=== PATIENT | female | born 1940 | race Caucasian/White ===

== ENCOUNTER 2020-01-05 11:10 | Outpatient (CLI) | payer MEDICARE, SELFPAY ==
--- NOTE | ~2020-01-05 | XR_ITS ---
XR heel LT min 2V DATE: 01/05/2020 11:37 INDICATION: Heel pain TECHNIQUE: Axial and lateral views COMPARISON: 01/05/2020 FINDINGS: There is distal Achilles calcification. There is prominent plantar calcaneal enthesopathy, with adjacent calcifications. No fracture or dislocation or bone destruction. IMPRESSION: Plantar calcaneal enthesopathy Distal Achilles tendon calcification Reviewed, dictated and finalized at location A.
--- NOTE | ~2020-01-05 | XR_ITS ---
XR foot LT min 3V DATE: 01/05/2020 11:33 INDICATION: Heel pain. No known injury. TECHNIQUE: 4 views COMPARISON: None FINDINGS: There is very prominent plantar calcaneal enthesopathy, with some adjacent soft tissue calc ification. There is calcification along the distal Achilles tendon. There is severe osteoarthritis with some prominent dorsal spurring at the first metatarsophalangeal j oint. No fracture or dislocation, periosteal reaction or bone destruction is detected otherwise. 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
== END 2020-01-05 11:11 | disposition home or self-care (01) ==
LOC: CHSIMG 11:16
PROVIDERS: PCP Internal Medicine; Visit Provider Internal Medicine
DX: M79.672 Pain in left foot (principal)
CPT/HCPCS: 73630; 73650

== ENCOUNTER 2020-04-16 09:55 | Outpatient (CLI) | payer MEDICARE, SELFPAY ==
--- NOTE | ~2020-04-16 | DEXA_ITS ---
BMD(1) Young-Adult(2) Age-Matched(3) Region (g/cm2) T-score Z-score WHO Classification L1 0.954 -1.5 0.1 Osteopenia L2 0.997 -1.8 -0.1 Osteopenia L3 1.129 -0.7 1.0 Normal L4 1.292 0.6 2.2 Normal L1-L2 0.975 -1.6 0.0 Osteopenia Trend: L1-L2 Change vs Change vs Measured Age BMD(1) Baseline Previous Date ([age]) (g/cm2) (%) (%) 04/16/2020 [age] 0.975 2.0 5.6 09/07/2013 [age] 0.923 -3.5 -2.6 09/12/2011 [age] 0.948 -0.8 -0.8 08/11/2008 [age] 0.956 baseline - 1 - Statistically 68% of repeat scans fall within 1SD (+- 0.020 g/cm2 for AP Spine L1-L2) 2 - [place] (Combined NHANES (ages 20-30) / [place] (ages 20-40)) AP Spine Reference Population (v112) 3 - Matched for Age, Weight (females 25-100 kg), Ethnic 11 - World Health Organization - Definition of Osteoporosis and Osteopenia for Women: Normal = T-score at or above -1.0 SD; Osteopenia = T-score between -1.0 and -2.5 SD; Osteoporosis = T-score at or below -2.5 SD; (WHO definitions only apply when a young healthy Women reference database is used to determine T-scores.) Printed: 04/16/2020 10:34:48 AM (13.60)76:3.00:50.00:12.0 0.00:10.44 0.60x1.05 20.2:%Fat=30.9% 0.00:0.00 0.00:0.00 Verify bone is centered and there is sufficient tissue next to bone. Filename: [id number] Scan Mode: Standard;OneScan 37.0 [employer] [id number] BMD(1) Young-Adult(2,7) Age-Matched(3) Region (g/cm2) T-score Z-score WHO Classification Neck Left 0.888 -1.1 0.9 Osteopenia Right 0.832 -1.5 0.5 Osteopenia Mean 0.860 -1.3 0.7 Osteopenia Difference 0.056 -0.4 -0.4 - Total Left 0.984 -0.2 1.6 Normal Right 0.891 -0.9 0.9 Normal Mean 0.937 -0.6 1.2 Normal Difference 0.093 -0.7 -0.7 - Hip [place] Length Comparison (mm) (Right = 100.0 mm) (Mean = 104.3 mm) (Left = 100.2 mm) Trend: Total Mean Change vs Change vs Measured Age BMD(1) Baseline Previous Date (years) (g/cm2) (%) (%) 04/16/2020 79.7 0.937 -2.0 0.5 09/07/2013 [age] 0.932 -2.5 2.6 09/12/2011 [age] 0.908 -5.0* -5.0* 08/11/2008 [age] 0.956 baseline - * - Indicates significant change based on 95% confidence interval. 1 - Statistically 68% of repeat scans fall within 1SD (+- 0.010 g/cm2 for DualFemur Total) 2 - [place] (Combined NHANES (ages 20-30) / [place] (ages 20-40)) Femur Reference Population (v112) 3 - Matched for Age, Weight (females 25-100 kg), Ethnic 7 - DualFemur Total T-score difference is 0.7. Asymmetry is Mild. 11 - World Health Organization - Definition of Osteoporosis and Osteopenia for Women: Normal = T-score at or above -1.0 SD; Osteopenia = T-score between -1.0 and -2.5 SD; Osteoporosis = T-score at or below -2.5 SD; (WHO definitions only apply when a young healthy Women reference database is used to determine T-scores.) Printed: 04/16/2020 10:34:48 AM (13.60); Filename: [id number]; Right Femur; 18.6:%Fat=35.0%; Neck Angle (deg)= 63; Scan Mode: Standard 37.0 uGy; Left Femur; 18.3:%Fat=38.2%; Neck Angle (deg)= 66; Scan Mode: Standard 37.0 uGy [place] [id number] Dear Barry Arndt, Your patient Mariel Nguyen completed a BMD test on 04/16/2020 using the [employer] DXA System (analysis version: 13.60) manufactured by [employer]
== END 2020-04-16 09:56 | disposition home or self-care (01) ==
LOC: CHSIMG 09:57
PROVIDERS: PCP Internal Medicine; Visit Provider Internal Medicine
DX: M85.80 Other specified disorders of bone density and structure, unspecified site (principal); Z78.0 Asymptomatic menopausal state
CPT/HCPCS: 77080

== ENCOUNTER 2021-06-28 15:20 | Outpatient (CLI) | payer MEDICARE, SELFPAY ==
--- NOTE | ~2021-06-28 | US_ITS ---
EXAMINATION: US venous doppler [facility] DATE: 06/28/2021 15:53 INDICATION: Left lower limb pain TECHNIQUE: Grayscale ultrasound images without and with compression and Doppler ultrasound images of the left lower extremity veins were obtained. COMPARISON: 11/28/2015 FINDINGS: The visualized portions of left common femoral vein, profunda (deep) femoral vein, femoral vein, popl iteal vein, peroneal veins, posterior tibial veins, gastrocnemius vein and greater saphenous vein out flow are patent. 5.1 x 1.1 x 1.5 cm Cooney cyst at the left popliteal fossa. IMPRESSION: 1. No deep venous thrombosis in the left lower limb. 2. Moderate-sized Cooney's cyst at the left popliteal fossa. Reviewed, dictated and finalized at location B. L MAKER SCALE
--- NOTE | ~2021-06-28 | XR_ITS ---
EXAMINATION: XR knee LT 3V DATE: 06/28/2021 16:09 INDICATION: Anterior left knee pain radiating down the leg TECHNIQUE: AP, lateral and sunrise views of the left knee were obtained COMPARISON: None. FINDINGS: Alignment is normal. No fracture. Chondrocalcinosis in the medial and lateral compartments of the kn ee. Joint spaces appear normal. Soft tissues are unremarkable. Likely small left knee joint effusion. IMPRESSION: 1. Likely small left knee joint effusion. No osseous abnormality. Reviewed, dictated and finalized at location B. E COLLECTOR
[2021-06-28 16:10] LABS: Basophils Absolute Auto 0.04 K/mm3 (0.00-0.10); Basophils Percent Auto 0.5 % (0.0-1.0); Eosinophils Absolute Auto 0.13 K/mm3 (0.02-0.50); Eosinophils Percent Auto 1.5 % (1.0-6.0); Hematocrit 44.6 % (35.0-42.0); Hemoglobin 14.6 g/dL (11.7-13.8); Immature Granulocyte Absolute 0.02 K/mm3 (0.00-0.00); Immature Granulocyte Percent A 0.2 % (0.0-0.0); Lymphocytes Absolute Auto 1.06 K/mm3 (1.10-4.50); Lymphocytes Percent Auto 12.3 % (18.0-42.0); Mean Corpuscular HGB Conc 32.7 g/dL (32.0-36.0); Mean Corpuscular Hemoglobin 31.5 pg (27.0-31.0); Mean Corpuscular Volume 96.3 fL (78.0-102.0); Mean Platelet Volume 10.5 fl (9.2-11.8); Monocytes Absolute Auto 0.53 K/mm3 (0.10-0.90); Monocytes Percent Auto 6.2 % (2.0-11.0); Neutrophils Absolute Auto 6.8 K/mm3 (1.7-7.2); Neutrophils Percent Auto 79.3 % (50.0-70.0); Platelet Count Result 287 K/mm3 (150-420); Red Blood Count 4.63 M/mm3 (4.20-5.40); White Blood Count 8.6 K/mm3 (4.8-10.8)
[2021-06-28 16:30] LABS: Uric Acid 4.7 mg/dL (2.6-6.0)
[2021-06-28 16:32] LABS: CRP < 0.2 mg/dL (0.0-0.9)
== END 2021-06-28 15:21 | disposition home or self-care (01) ==
LOC: CHSLAB 15:24
PROVIDERS: PCP Internal Medicine; Visit Provider Nurse Practitioner Family
DX: M79.605 Pain in left leg (principal); M25.562 Pain in left knee
CPT/HCPCS: 36415; 73562; 84550; 85025; 86140; 93971

== ENCOUNTER 2021-10-09 09:07 | Outpatient (CLI) | payer MEDICARE, SELFPAY ==
[2021-10-09 10:29] LABS: Alanine Aminotransferase 21 U/L (14-59); Albumin Level 3.4 g/dL (3.4-5.0); Alkaline Phosphatase 104 U/L (46-116); Anion Gap 9 mmol/L (8-16); Aspartate Amino Transferase 17 U/L (15-37); Bilirubin,Total 0.3 mg/dL (0.00-1.00); Blood Urea Nitrogen 14 mg/dL (7-18); Calcium 9.1 mg/dL (8.5-10.1); Carbon Dioxide 27 mmol/L (21-32); Chloride 114 mmol/L (98-108); Cholesterol 191 mg/dL (0-200); Estimated Glomerular Filt Rate > 60; Glucose 92 mg/dL (70-99); HDL Direct 54 mg/dL (40-60); LDL Cholesterol Calculated 116 mg/dL (<130); Osmolality Calculated 310 mOsm/kg (285-295); Potassium 4.9 mmol/L (3.5-5.1); Sodium 150 mmol/L (136-145); Total Protein 7.2 g/dL (6.4-8.2); Triglycerides 105 mg/dL (0-150)
== END 2021-10-09 09:08 | disposition home or self-care (01) ==
PROVIDERS: PCP Internal Medicine; Visit Provider Internal Medicine
DX: E78.5 Hyperlipidemia, unspecified (principal); I10 Essential (primary) hypertension
CPT/HCPCS: 36415; 80053; 80061

== ENCOUNTER 2021-10-24 10:28 | Outpatient (CLI) | payer MEDICARE, SELFPAY ==
--- NOTE | ~2021-10-24 | US_ITS ---
EXAMINATION: US venous doppler [facility] DATE: 10/24/2021 11:07 INDICATION: Bilateral lower limb swelling TECHNIQUE: [place] scale images without and with compression and Doppler images of the bilateral lower e xtremity veins were obtained. COMPARISON: 06/28/2021 FINDINGS: The right common femoral vein, profunda femoral vein, femoral vein, popliteal vein, peroneal trunk, p osterior tibial veins, and greater saphenous vein are patent. The left common femoral vein, profunda femoral vein, femoral vein, popliteal vein, peroneal trunk, po sterior tibial veins, and greater saphenous vein are patent.. Left Cooney's cyst is again noted. IMPRESSION: 1. Patent bilateral lower extremity veins. No evidence of deep venous thrombosis. Reviewed, dictated and finalized at location B. IMPRESSION: 1. Patent bilateral lower extremity veins. No evidence of deep venous thrombosi s.
== END 2021-10-24 10:29 | disposition home or self-care (01) ==
LOC: CHSIMG 10:33
PROVIDERS: PCP Internal Medicine; Visit Provider Internal Medicine
DX: R79.1 Abnormal coagulation profile (principal); M79.89 Other specified soft tissue disorders
CPT/HCPCS: 93970

== ENCOUNTER 2021-10-28 09:54 | Outpatient (CLI) | payer MEDICARE, SELFPAY ==
--- NOTE | ~2021-10-28 | CT_ITS ---
EXAMINATION: CTA chest PE protocol DATE: 10/28/2021 14:49 INDICATION: Shortness of breath with exertion. Left-sided chest pain. Elevated d-dimer. TECHNIQUE: Computed tomography angiography (CTA) of the chest was performed with 100 mL Omnipaque-350 intravenous contrast timed to evaluate the pulmonary arteries. Coronal maximum intensity projection 3D-reconstructions were created by the technologist. Automated exposure control and iterative reconst ruction technique were employed. Exam dose: 228.75 mGy-cm total exam DLP. COMPARISON: 09/06/2017 two-view chest FINDINGS: There is diagnostic contrast enhancement of the pulmonary arteries and no evidence of pulmo nary embolism. No hilar or mediastinal mass lesion or lymphadenopathy. Normal heart size. Coronary artery calcification. No pericardial or pleural effusion. No pulmonary infiltrate or consolidation or pulmonary mass lesion is detected. Degenerative changes of the lower cervical and thoracic spine. IMPRESSION: No evidence of pulmonary embolism Reviewed, dictated and finalized at Location A. Reviewed, dictated and finalized at location B.
--- NOTE | 2021-10-28 10:15 | ECG_ITS ---
Measurements Intervals [place] Rate: 67 P: 56 RI: 161 QRS: 6 QRSD: 86 T: 48 QT: 382 QTc: 403 Interpretive Statements SINUS RHYTHM POSSIBLE LEFT ATRIAL ENLARGEMENT DELAYED PRECORDIAL R/S TRANSITION POSSIBLE LEFT VENTRICULAR HYPERTROPHY BASELINE ARTIFACT- I, II, III, AVR, AVL, AVF BORDERLINE ECG Electronically Signed On 10-28-2021 10:22:54 CDT by Agustin Melgar D.O.
[2021-10-28 10:32] LABS: D Dimer 0.71 mg/L (0.19-0.50)
[2021-10-28 10:38] LABS: NT Pro B Type Natriuretic Pept 80 pg/mL (0-450)
== END 2021-10-28 09:55 | disposition home or self-care (01) ==
PROVIDERS: PCP Internal Medicine; Visit Provider Internal Medicine
DX: R06.00 Dyspnea, unspecified (principal); R79.1 Abnormal coagulation profile
CPT/HCPCS: 36415; 71275; 83880; 85380; 93005; Q9967

== ENCOUNTER 2022-05-22 00:48 | Day surgery (SDC) | payer MEDICARE, SELFPAY ==
[2022-05-06 14:32] VITALS: BMI 27.1
[2022-05-22 07:39] VITALS: BP 148/82; PULSE 88; RESP 16; TEMP 36.4; O2SAT 98
[2022-05-22] MEDS: LACTATED RINGERS 1,000 ML 150 ML IV CONT (07:50)
--- NOTE | 2022-05-22 08:00 | P.PNAN_ITS ---
Anes - Initial Pre Proc Eval Procedure: Operation Date: 05/22/22 08:30 Proposed Procedures p Screening Colonoscopy - Chad Gan MD Date/Time: 05/22/22 08:00 Surgeon: Chad Gan MD Pre Op Diagnosis: neoplasm screening Patient Data Age: 81 Gender: F Height: 1.64 m Weight: 73.9 kg Last Vital Signs Temp 36.4 C 05/22/22 07:39 Pulse 88 05/22/22 07:39 Resp 16 05/22/22 07:39 BP 148/82 H 05/22/22 07:39 Pulse Ox 98 05/22/22 07:39 O2 Del Method Room Air 05/22/22 07:39 Allergies Allergy/AdvReac Type Severity Reaction Status Date / Time No Known Allergies Allergy Verified 05/22/22 07:37 Home Medications Medication Instructions Recorded Confirmed Type levothyroxine 200 mcg tablet 100 mcg PO DAILY 05/06/22 05/22/22 History (Euthyrox) losartan 100 mg tablet 50 mg PO DAILY 05/06/22 05/22/22 History simvastatin 10 mg tablet (Zocor) 10 mg PO DAILY 05/06/22 05/22/22 History Patient hx anesthesia problems: none Family hx anesthesia problems: none Results Review: All pre-operative results and documents have been reviewed as part of the pre- operative evaluation. [facility] Past Medical History Medical History Hyperlipidemia Hypertension Hypothyroid Skin cancer Social History Social History Smoking status: Never smoker Substance use: never Living arrangements: alone Anes - Eval Final PreProcedure Day of Procedure 05/22/22 08:00 Patient weight: overweight Heart: regular rate and rhythm Lungs: clear to auscultation Airway: Mallampati scale class II Neurological: other (alert) Last oral intake: >/= 8 hours ASA classification: III Emergent: no Anesthetic plan: proceed Anesthesia type and monitoring: general GIVS and standard monitoring Results Review: All pre-operative results and documents have been reviewed as part of the pre- operative evaluation. Informed Consent: The patient's anesthetic plan and its attendant risks and benefits were discussed with the patient/family/POA. Questions were solicited and answers provided to the satisfaction of the patient/family/POA.
--- NOTE | 2022-05-22 08:44 | PM.HPGS ---
History of Present Illness History of Present Illness Consent: Risks, benefits, and alternatives have been discussed and questions answered. Patient agrees to proceed with procedure. Chief complaint: neoplasm screening Narrative: Mariel Nguyen is a 81 year old female Presents for screening colonoscopy. Patient reports previous colonoscopy 10 years ago. Patient current weight appetite and bowel movements are normal. She denies abdominal pain. She has had no bleeding. Family history is noncontributory. Patient presents today for surveillance screening colonoscopy. [facility] Past Medical History Medical History Hyperlipidemia Hypertension Hypothyroid Skin cancer Social History Social History Smoking status: Never smoker Substance use: never Living arrangements: alone Meds Home Medications and Allergies Home Medications Medication Instructions Recorded Confirmed Type levothyroxine 200 mcg tablet 100 mcg PO DAILY 05/06/22 05/22/22 History (Euthyrox) losartan 100 mg tablet 50 mg PO DAILY 05/06/22 05/22/22 History simvastatin 10 mg tablet (Zocor) 10 mg PO DAILY 05/06/22 05/22/22 History Allergies Allergy/AdvReac Type Severity Reaction Status Date / Time No Known Allergies Allergy Verified 05/22/22 07:37 Vital Signs Vital Signs - 24 hr 05/22/22 07:39 Temperature 97.6 F Pulse Rate 88 Respiratory Rate 16 Blood Pressure 148/82 H Pulse Oximetry 98 Oxygen Delivery Room Air Exam Narrative: Physical exam reveals patient to be alert. Vital signs stable. HEENT exam is unremarkable. Patient is anicteric. Lungs are clear to auscultation and percussion. Heart is without murmur or extra sounds. Abdomen bowel sounds present soft nontender with no organomegaly. Digital external rectal exam is normal. Assessment and Plan Assessment and plan (1) Encounter for screening colonoscopy: Code(s): Z12.11 - Encounter for screening for malignant neoplasm of colon Status: Acute Assessment and Plan: Patient presents for screening colonoscopy. Appears to be at average risk for colon polyps. Further recommendations may be given after endoscopy.
[2022-05-22 09:25] VITALS: BP 124/62; PULSE 78; RESP 27; O2SAT 99
[2022-05-22 09:35] VITALS: BP 121/91; PULSE 82; RESP 23; O2SAT 99
[2022-05-22 09:45] VITALS: BP 122/90; PULSE 74; RESP 20; O2SAT 99
== END 2022-05-22 09:58 | disposition home or self-care (01) ==
PROVIDERS: PCP Internal Medicine; Visit Provider Internal Medicine Gastroenterology
PROC: 0DJD8ZZ Inspection of Lower Intestinal Tract, Via Natural or Artificial Opening Endoscopic (ICD-10-PCS; CPT 45378; principal; 2022-05-22 08:30)
DX: Z12.11 Encounter for screening for malignant neoplasm of colon (principal); K64.8 Other hemorrhoids; I10 Essential (primary) hypertension; E78.5 Hyperlipidemia, unspecified; E03.9 Hypothyroidism, unspecified
CPT/HCPCS: G0121; J2704; J7120

== ENCOUNTER 2022-10-22 10:39 | Outpatient (CLI) | payer MEDICARE, OTHER, SELFPAY ==
--- NOTE | ~2022-10-22 | DEXA_ITS ---
Bone Density Report Name: LIBRA FRENCH Age: 82 Sex: Female Ethnicity: White Date of : 1940 Indication: postmenopausal; screening for osteoporosis; height loss; Referring Provider: Barry Arndt Study: Bone densitometry was performed. Exam Date: October 22, 2022 Accession number: [id number] Bone Density: Region BMD T-score Z-score Classification AP Spine(L1, L2, L3) 0.906 -1.0 1.6 Normal Femoral Neck (Left) 0.723 -1.1 1.2 Osteopenia Total Hip (Left) 0.845 -0.8 1.3 Normal Femoral Neck (Right) 0.706 -1.3 1.0 Osteopenia Total Hip (Right) 0.812 -1.1 1.0 Osteopenia Femoral Neck Mean 0.715 -1.2 1.1 Osteopenia Total Hip Mean 0.829 -0.9 1.1 Normal World Health Organization criteria for BMD impression classify patients as: Normal (T-score at or above -1.0), Osteopenia (T-score between -1.0 and -2.5), or Osteoporosis (T-score at or below -2.5). 10-year Fracture Risk(1): Major Osteoporotic Fracture 13% Hip Fracture 2.8% Reported Risk Factors: [place] (), Neck BMD=0.706, BMI=28.3 (1) FRAX(R) Version 3.08. Fracture probability calculated for an untreated patient. Fracture probability may be lower if the patient has received treatment. Clinical Information Provided by Patient: Has used the following medications: Vitamin D, Calcium Patient maximum height was 65 Menopause Age: 52 No regular weight bearing exercise Drinks caffeinated beverages Onset of menses at age 13 Number of children 4 Impression: The patient has low bone mass, based on the Right Femoral Neck T-score. Discussion: BONE DENSITY IS LOW AT ONE OR MORE SKELETAL SITES. This patient's lowest T-score is low at one or more skeletal sites. It meets the World Health Organization's (WHO) criteria for ?low bone mass? (T-score between -1.0 and -2.5). The patient's 10-year risk of fracture as calculated by FRAX is less than the threshold where pharmacological therapy is recommended by the National Osteoporosis Foundation (NOF). However, all treatment decisions require clinical judgment and consideration of individual patient factors, including patient preferences, comorbidities, previous drug use, risk factors not captured in the FRAX model (e.g., frailty, falls, vitamin D deficiency, increased bone turnover, interval significant decline in bone density) and possible under or overestimation of fracture risk by FRAX. The patient should follow a healthful lifestyle (good nutrition with adequate calcium and vitamin D, and appropriate weight-bearing exercise). Follow-Up: Consider repeating this study in 2 to 3 years to reassess this patient's status, or sooner if there is some new clinical indication. Reported by: Dr. Obi Pearce on 10/22/2022 11:13:00 AM.
== END 2022-10-22 10:40 | disposition home or self-care (01) ==
PROVIDERS: PCP Internal Medicine; Visit Provider Internal Medicine
DX: Z78.0 Asymptomatic menopausal state (principal); M85.89 Other specified disorders of bone density and structure, multiple sites
CPT/HCPCS: 77080

== ENCOUNTER 2022-11-12 16:08 | Outpatient (CLI) | payer MEDICARE, OTHER, SELFPAY ==
--- NOTE | ~2022-11-12 | XR_ITS ---
EXAM: XR knee RT 3V DATE: 11/12/2022 17:18 HISTORY: BILATERAL AND POSTERIOR RIGHT KNEE PAIN SINCE [email or web address].NKI . COMPARISON: None available. FINDINGS: Decreased mineralization. No fracture or dislocation. No lytic or blastic lesion. Mild tri compartmental osteophytosis and osteophytosis at the tibial spine. Chondrocalcinosis. No erosion or p eriosteal change. Soft tissues within normal limits. Moderate volume joint fluid IMPRESSION: Mild tricompartmental arthritic changes with chondrocalcinosis. Moderate volume joint eff usion. Reviewed, dictated and finalized at location K. IMPRESSION: Mild tricompartmental arthritic changes with chondrocalcinosis. Mod erate volume joint effusion.
== END 2022-11-12 16:09 | disposition home or self-care (01) ==
LOC: CHSIMG 16:13
PROVIDERS: PCP Internal Medicine; Visit Provider Nurse Practitioner Family
DX: M25.561 Pain in right knee (principal); M17.11 Unilateral primary osteoarthritis, right knee; M11.261 Other chondrocalcinosis, right knee; M25.461 Effusion, right knee
CPT/HCPCS: 73562

== ENCOUNTER 2022-12-25 07:04 | Outpatient (CLI) | payer MEDICARE, OTHER, SELFPAY ==
--- NOTE | ~2022-12-25 | MR_ITS ---
MRI of the right knee Clinical history: Pain Technique: Coronal proton density and proton density-weighted images, sagittal proton-density and T2 fat-sat images, and axial proton-density fat-saturated images were acquired. Findings: Anterior and posterior cruciate ligaments are intact. Medial collateral ligament and the la teral collateral ligament complex are intact. Popliteus tendon is intact. There is horizontal tear of the posterior horn and body of the medial meniscus. Questionable focal ra dial tear at the posterior root of the medial meniscus. There is complex, predominantly horizontal te aring of the anterior horn and body of the lateral meniscus. There is patchy moderate chondromalacia along the medial and lateral femoral condyles. There is proba ble moderate chondromalacia the femoral trochlea. There is extensive moderate chondral malacia patell a. Tricompartmental osteophytes are present. Extensor mechanism is intact. Small joint effusion present. Moderate Cooney's cyst is present. Impression: Horizontal tear of the posterior horn and body of medial meniscus, with questionable radial tear at t he posterior root. Complex, predominantly horizontal tearing of the anterior horn and body of the lateral meniscus. Moderate tricompartmental degenerative change, as detailed above. Small joint effusion and moderate Cooney's cyst. Reviewed, dictated and finalized at location . Impression: Horizontal tear of the posterior horn and body of medial meniscus, with questio nable radial tear at the posterior root. Complex, predominantly horizontal tearing of the anterior horn and body of the lateral meniscus. Moderate tricompartmental degenerative change, as detailed above. Small joint effusion and moderate Cooney's cyst.
--- NOTE | ~2022-12-25 | US_ITS ---
EXAMINATION: US aorta DATE: 12/25/2022 08:07 INDICATION: Aortic aneurysm TECHNIQUE: Grayscale, color Doppler, and pulsed Doppler images of the aorta and common iliac arteries were obtained. COMPARISON: None. FINDINGS: The proximal aorta measures 2.1 cm. The mid aorta measures 1.7 cm. The distal aorta measures 1.4 cm. The right common iliac artery measures 1.2 cm. The left common iliac artery measures 1.0 cm. IMPRESSION: 1. Normal caliber abdominal aorta. Reviewed, dictated and finalized at location L.
== END 2022-12-25 07:05 | disposition home or self-care (01) ==
PROVIDERS: PCP Internal Medicine; Visit Provider Internal Medicine
DX: I71.9 Aortic aneurysm of unspecified site, without rupture (principal); M25.561 Pain in right knee; S83.241A Other tear of medial meniscus, current injury, right knee, initial encounter; S83.271A Complex tear of lateral meniscus, current injury, right knee, initial encounter; M17.11 Unilateral primary osteoarthritis, right knee; M25.461 Effusion, right knee; M71.21 Synovial cyst of popliteal space [Baker], right knee
CPT/HCPCS: 73721; 76775

== ENCOUNTER 2022-12-29 08:49 | Outpatient (CLI) | payer MEDICARE, OTHER, SELFPAY ==
--- NOTE | ~2022-12-29 | XR_ITS ---
EXAMINATION: XR wrist RT min 3V, XR hand LT min 3V, XR hand RT min 3V, XR wrist LT min 3V DATE: 12/29/2022 09:15 INDICATION: Polyarticular osteoarthritis at the bilateral hands and wrists with bilateral thumb pain. TECHNIQUE: 1. Posteroanterior, ulnar deviation, oblique, and lateral views of the left wrist were obtained. 2. Dorsal palmar, oblique and lateral views of the left hand were obtained. 3. Posteroanterior, ulnar deviation, oblique, and lateral views of the right wrist were obtained. 4. Dorsal palmar, oblique and lateral views of the right hand were obtained. COMPARISON: None. FINDINGS: Diffuse osteopenia at the bilateral hands and wrists. No fractures. Advanced osteoarthritis with mild secondary radial angulation at the right second-fourth distal interphalangeal joints. There been froy or arthrodeses with axillary directed compression screw fixation across the left second and third dis diana interphalangeal joints. There is also fusion without instrumentation at the left fifth distal int erphalangeal joint. Alignment is otherwise normal. Additional severe osteoarthritis at the left first and right first and fifth distal interphalangeal joints. Several of the distal interphalangeal joint s demonstrate central erosions with gullwing configuration consistent with erosive osteoarthritis. Mo derate to severe osteoarthritis at the bilateral first carpometacarpal joints, moderate osteoarthriti s at the right first metacarpophalangeal, right second, fourth and fifth proximal interphalangeal and left fourth proximal interphalangeal joint and mild osteoarthritis at the wrist, triscaphe and multi ple metacarpophalangeal joints. Chondrocalcinosis in the region of the right ureter fibrocartilage co mplex on both the left and right. IMPRESSION: 1. Typical distribution of severe polyarticular osteoarthritis at the bilateral hands and wrists with change of erosive osteoarthritis at several of the distal interphalangeal joints. Reviewed, dictated and finalized at location A. IMPRESSION: 1. Typical distribution of severe polyarticular osteoarthritis at the bilateral hands and wrists with change of erosive osteoarthritis at several of the dista l interphalangeal joints. IMPRESSION: 1. Typical distribution of severe polyarticular osteoarthritis at the bilateral hands and wrists with change of erosive osteoarthritis at several of the dista l interphalangeal joints. IMPRESSION: 1. Typical distribution of severe polyarticular osteoarthritis at the bilateral hands and wrists with change of erosive osteoarthritis at several of the dista l interphalangeal joints.
== END 2022-12-29 08:50 | disposition home or self-care (01) ==
LOC: CHSIMG 08:51
PROVIDERS: PCP Internal Medicine; Visit Provider Plastic Surgery
DX: M19.032 Primary osteoarthritis, left wrist (principal); M19.031 Primary osteoarthritis, right wrist; M19.041 Primary osteoarthritis, right hand; M19.042 Primary osteoarthritis, left hand
CPT/HCPCS: 73110; 73130

== ENCOUNTER 2023-03-30 13:07 | Outpatient (RCR) | payer MEDICARE, OTHER, SELFPAY ==
--- NOTE | 2023-03-30 13:55 | PTOPEVAL1 ---
Assessment and note entered by Kyrie Longo Evaluation Information Assessment Status Evaluation Diagnosis primary OA right knee, right knee pain Onset 02/06/23 Subjective Information Pt. reports that she underwent knee surgery on . She reports she underwent a knee scope. She states that she has been trying to avoid knee replacement. She states that prior to surgery she could not make it through the day with walking and would occasionally use a wc. She states that she is going on vacation on 04/15/23 and is hopefully to be able to walk a long distance. She states that the furthest she has walked is through the grocery store. She has returned to driving. She report that her goal is to be able to bend her knee due to having difficulty with dressing due to stiffness in the knee. Reported Pain Level Pain Score 2: Self Report Assessment PT Clinical Summary Pt. is an 82 year old female 1 1/2 months post right knee arthroscopy with continued knee pain. She presents with decreased right knee ROM, impaired l.e. strength, impaired flexibility, impaired gait and functional decline on this date. Continued skilled PT is indicated in order to improve these areas to allow the pt. to be able to complete all IADL's and ADL's without limitation. Plan of Care Interventions Electrical Stimulation,Gait Training,Hot Pack/Cold Pack,Manual Therapy,Neuro Re-education,Patient/ Caregiver Educati,Therapeutic Activities, Therapeutic Exercise,Self-Care/Home Management PT Services Indicated Yes Treatment Frequency and 2x/week x 10 visits Duration These treatments will address the objective and functional deficits as defined above. The patient will be advanced safely and appropriately in order for the patient to progress towards his/her prior level of function. Additional exercises will be introduced and as well as a comprehensive home exercise program upon discharge, if needed, ?to ensure carryover of functional gains achieved in the clinic. This treatment plan has been reviewed and agreement upon by the patient.
--- NOTE | 2023-03-30 13:56 | OPREHPOC ---
Outpatient Therapy Plan of Care This is a Multidisciplinary Plan of Care that may contain components documented by all disciplines (PT, OT, and ST.) PT Problem 1 PT Problem #1 Knowledge Deficit PT Goal 1 Goal Pt. will be independent with a HEP addressing strength and ROM temple. Target Visit 2 PT Problem 2 PT Problem #2 Impaired Range of Motion PT Goal 1 Goal -Pt. will demonstrates 0-120 degrees right knee AROM -Pt. will present at 15 degrees from full knee extension on both right and left with the 90/90 test. PT Problem 3 PT Problem #3 Impaired Gait PT Goal 1 Goal Pt. will ambulate a duration of 6 minutes for 1200 ' with equal right and left stance time. PT Problem 4 PT Problem #4 Impaired Strength PT Goal 1 Goal Pt. will present with 5/5 knee flexion and extension on the right.
--- NOTE | 2023-04-24 15:25 | OPREHPOC ---
Outpatient Therapy Plan of Care This is a Multidisciplinary Plan of Care that may contain components documented by all disciplines (PT, OT, and ST.) PT Problem 1 PT Problem #1 Knowledge Deficit PT Goal 1 Goal Pt. will be independent with a HEP addressing strength and ROM worship. Target Visit 2 Progress Met PT Problem 2 PT Problem #2 Impaired Range of Motion PT Goal 1 Goal -Pt. will demonstrates 0-120 degrees right knee AROM -Pt. will present at 15 degrees from full knee extension on both right and left with the 90/90 test. Progress Met PT Problem 3 PT Problem #3 Impaired Gait PT Goal 1 Goal Pt. will ambulate a duration of 6 minutes for 1200 ' with equal right and left stance time. Progress Met PT Problem 4 PT Problem #4 Impaired Strength PT Goal 1 Goal Pt. will present with 5/5 knee flexion and extension on the right. Progress Met
--- NOTE | 2023-04-24 15:26 | PTOPDC ---
Assessment and note entered by Maude Morillo DPT Evaluation Information Assessment Status Discharge Diagnosis primary OA right knee, right knee pain Onset 02/06/23 Subjective Information She reports she is back to doing prior ADLs. She reports she is able to navigate steps with step over gait pattern. She does report compliance with HEP. Reported Pain Level Pain Score 0: Self Report Assessment PT Clinical Summary Patient has been seen for 10 visits of skilled PT. She met all goals set during POC. She demonstrates 3-120 deg of R knee AROM and 5/5 strength of the L knee. She reports she has been able to return to all daily activities at [facility]. She is independent with HEP and is appropriate for DC at this time. Plan of Care PT Services Indicated No
== END 2023-04-24 15:28 | disposition home or self-care (01) ==
LOC: CHSPT 13:07
PROVIDERS: PCP Internal Medicine; Visit Provider Orthopaedic Surgery
DX: M17.11 Unilateral primary osteoarthritis, right knee (principal)
CPT/HCPCS: 97014; 97110; 97112; 97161; 97530; 97750; G0283

== ENCOUNTER 2023-10-14 08:06 | Outpatient (CLI) | payer MEDICARE, SELFPAY ==
[2023-10-14 10:27] LABS: Alanine Aminotransferase 28 U/L (14-59); Albumin Level 3.5 g/dL (3.4-5.0); Alkaline Phosphatase 98 U/L (46-116); Anion Gap 5 mmol/L (4-12); Aspartate Amino Transferase 20 U/L (15-37); Bilirubin,Total 0.5 mg/dL (0.00-1.00); Blood Urea Nitrogen 14 mg/dL (7-18); Calcium 8.7 mg/dL (8.5-10.1); Carbon Dioxide 31 mmol/L (21-32); Chloride 104 mmol/L (98-108); Cholesterol 172 mg/dL (0-200); Estimated Glomerular Filt Rate > 60; Glucose 88 mg/dL (70-99); HDL Direct 61 mg/dL (40-60); LDL Cholesterol Calculated 95 mg/dL (<130); Osmolality Calculated 289 mOsm/kg (285-295); Potassium 4.4 mmol/L (3.5-5.1); Sodium 140 mmol/L (136-145); Thyroid Stimulating Hormone 2.61 uIU/mL (0.36-3.74); Total Protein 6.6 g/dL (6.4-8.2); Triglycerides 82 mg/dL (0-150)
== END 2023-10-14 08:07 | disposition home or self-care (01) ==
LOC: CHSLAB 08:08
PROVIDERS: PCP Internal Medicine; Visit Provider Internal Medicine
DX: I10 Essential (primary) hypertension (principal); E78.5 Hyperlipidemia, unspecified; E03.9 Hypothyroidism, unspecified
CPT/HCPCS: 36415; 80053; 80061; 84443

== ENCOUNTER 2023-12-31 16:17 | Outpatient (CLI) | payer MEDICARE, OTHER, SELFPAY ==
--- NOTE | 2023-12-31 16:21 | ECHO_ITS ---
Patient Info Name: Mariel Nguyen Age: 83 years : 1940 Gender: Female Ht: 64 in Wt: 160 lbs BSA: 1.83 m2 HR: 84 bpm BP: 139 / 82 mmHg Technical Quality: Good Exam Date: 12/31/2023 4:14 PM Exam Location: [facility] Patient Status: Outpatient Admit Date: 12/31/2023 Staff Ordering Physician: Agustin Melgar DO Director Dance: Alen Lucio RDCS Attending Provider: Agustin Melgar DO Referring Physician: Ramón MURCIA; Exam Type: CA echo doppler color flow Study Info Indications R01.1 - Cardiac murmur, unspecified Complete two-dimensional, color flow and Doppler transthoracic echocardiogram is performed. Summary 1. Complete two-dimensional, color flow and Doppler transthoracic echocardiogram is performed. 2. Left ventricular chamber dimension is normal. 3. Left ventricular systolic function is normal, estimated at 65-70%. 4. There is mild concentric increased left ventricular wall thickness. 5. The left ventricular diastolic function is grade I diastolic dysfunction. 6. E/e' 9 is minimally elevated. 7. There is mild aortic valve sclerosis. 8. There is mild aortic valve regurgitation. 9. The mitral valve has mildly calcified annulus. 10. There is mild to moderate tricuspid valve regurgitation. 11. No pulmonary hypertension, estimated pulmonary arterial systolic pressure is 34 mmHg. Left Ventricle E/e' 9 is minimally elevated. Left ventricular chamber dimension is normal. Left ventricular systolic function is normal, estimated at 65-70%. There is mild concentric increased left ventricular wall thickness. The left ventricular diastolic function is grade I diastolic dysfunction. Right Ventricle Right ventricular systolic function is normal and with normal TAPSE 2.2 cm. Right ventricular chamber dimension is normal. Left Atria Left atrial chamber dimension is normal. Right Atria Right atrial chamber dimension is normal. Aortic Valve The aortic valve is trileaflet. There is mild aortic valve sclerosis. There is no aortic valve stenosis. There is mild aortic valve regurgitation. Pulmonic Valve There is no pulmonic regurgitation. Mitral Valve The mitral valve has mildly calcified annulus. There is no mitral valve stenosis. There is no mitral valve regurgitation. Tricuspid Valve There is mild to moderate tricuspid valve regurgitation. No pulmonary hypertension, estimated pulmonary arterial systolic pressure is 34 mmHg. Pericardium/Pleural There is no pericardial effusion. Inferior Vena Cava Normal inferior vena cava with >50% collapse upon inspiration consistent with normal right atrial pressure, 5 mmHg. Aorta The aortic root size at the sinus of Valsalva is normal. Left Ventricular Outflow Tract Name Value Normal LVOT 2D LVOT Diameter 1.9 cm LVOT Doppler LVOT Peak Velocity 124 cm/s LVOT Peak Gradient 6 mmHg LVOT Mean Gradient 3 mmHg LVOT VTI 26 cm LVOT VTI/AV VTI Ratio 0.9 LVOT Stroke Volume 72 ml Pulmonic Valve Name
== END 2023-12-31 16:18 | disposition home or self-care (01) ==
PROVIDERS: PCP Internal Medicine; Visit Provider Internal Medicine Cardiovascular Disease
DX: R01.1 Cardiac murmur, unspecified (principal); I08.3 Combined rheumatic disorders of mitral, aortic and tricuspid valves
CPT/HCPCS: 93306

== ENCOUNTER 2024-02-01 08:41 | Outpatient (CLI) | payer MEDICARE, OTHER, SELFPAY ==
--- NOTE | 2024-02-01 09:06 | EST_ITS ---
Patient Info Name: Mariel Nguyen Age: 83 years : 1940 Gender: Female Ht: 64 in Wt: 165 lbs BSA: 1.86 m2 HR: 69 bpm BP: 140 / 84 mmHg Heart Rhythm: Sinus Rhythm Technical Quality: Good Exam Date: 02/01/2024 10:25 AM Exam Location: Echo Lab Patient Status: Outpatient Admit Date: 02/01/2024 Staff Ordering Physician: Agustin Melgar DO Attending Provider: Agustin Melgar DO Exam Type: CA stress geraldine w NM Study Info A regadenoson stress test was performed. History/Risk Factors Hypertension: Yes Dyslipidemia: Yes Summary 1. 1. Negative lexiscan stress test for ischemic ST changes by ECG criteria. 2. 2. Baseline hypertension. 3. 3. Nuclear scan to follow and will be reported separately. Please correlate with it. Protocol: LEXISCAN Stress ECG Details Stage: REST Duration (min): 1 min : 38 sec HR (bpm): 68 SBP (mmHg): 140 DBP (mmHg): 84 Stage: REST Duration (min): 3 min : 55 sec HR (bpm): 72 SBP (mmHg): 140 DBP (mmHg): 84 Stage: REST Duration (min): 4 min : 37 sec HR (bpm): 70 SBP (mmHg): 140 DBP (mmHg): 84 Stage: STAGE 1 Duration (min): 0 min : 23 sec HR (bpm): 71 SBP (mmHg): 140 DBP (mmHg): 84 Stage: RECOVERY Duration (min): 0 min : 36 sec HR (bpm): 95 SBP (mmHg): 140 DBP (mmHg): 84 Stage: RECOVERY Duration (min): 1 min : 36 sec HR (bpm): 106 SBP (mmHg): 140 DBP (mmHg): 84 Stage: RECOVERY Duration (min): 2 min : 36 sec HR (bpm): 97 SBP (mmHg): 152 DBP (mmHg): 76 Stage: RECOVERY Duration (min): 3 min : 36 sec HR (bpm): 88 SBP (mmHg): 152 DBP (mmHg): 76 Stage: RECOVERY Duration (min): 4 min : 36 sec HR (bpm): 86 SBP (mmHg): 142 DBP (mmHg): 76 Stage: RECOVERY Duration (min): 5 min : 36 sec HR (bpm): 85 SBP (mmHg): 142 DBP (mmHg): 76 Stage: RECOVERY Duration (min): 6 min : 19 sec HR (bpm): 82 SBP (mmHg): 136 DBP (mmHg): 90 Rest HR: 70 bpm Peak HR: 109 bpm Rest Sys BP: 140 mmHg Peak Sys BP: 155 mmHg Max Pred HR: 139 bpm % Max Pred HR: 78 % Target HR: 118 bpm Max RPP: 16,895 bpm*mmHg BP Response: Normal blood pressure response Termination Reason: Completed Protocol Cardiac Symptoms: None Total Time: 0 min : 23 sec Rest Damon BP: 84 mmHg Peak Damon BP: 74 mmHg Total Dose: 0.4 mg Resting ECG Normal sinus rhythm, delayed precordial R/S transition. Stress ECG No abnormal ST/T wave changes. Arrhythmias No arrhythmias were observed during the examination. Report Signatures
--- NOTE | 2024-02-01 13:29 | WPDCARIOSTRE ---
Nuclear Stress Test INDICATIONS Indications: Preop PROCEDURE Procedure Performed: Myocardial Perf Spect-Multi Procedure: Patient underwent a lexiscan stress test and immediately was injected with 31.4 mCi of cardiolyte. Multiple tomographic images were obtained. These are of good quality. There is no perfusion defects with stress imaging. A separate resting images were obtained after patient was injected with 10.2 mCi of cardiolyte. Multiple tomographic images were obtained. These are of good quality. There is no perfusion defect with rest imaging. CONCLUSION Conclusion: 1. Normal myocardial perfusion imaging demonstrating no perfusion defects with stress or rest imaging. 2. No reversible ischemia. 3. Left ventriculogram demonstrates normal measured ejection fraction of 70% with no wall motion abnormalities. 4. TID score 1.12 is normal.
== END 2024-02-01 08:42 | disposition home or self-care (01) ==
LOC: CHSCARD 08:42
PROVIDERS: PCP Internal Medicine; Visit Provider Internal Medicine Cardiovascular Disease
DX: Z01.810 Encounter for preprocedural cardiovascular examination (principal); I10 Essential (primary) hypertension
CPT/HCPCS: 78452; 93017; A9502; J2785

== ENCOUNTER 2024-03-14 12:24 | Outpatient (CLI) | payer MEDICARE, OTHER, SELFPAY ==
--- NOTE | ~2024-03-14 | XR_ITS ---
Clinical Indication: Cough PA and lateral views of the chest: Comparison: 09/06/2018 Findings: The lungs are clear, without evidence of focal consolidation or pleural effusion. Cardiome diastinal silhouette is within normal limits. Stable scoliosis of the lumbar spine. Impression: Clear lungs. Reviewed, dictated and finalized at [facility]. Impression: Clear lungs.
[2024-03-14 12:48] LABS: Basophils Absolute Auto 0.06 K/mm3 (0.00-0.10); Eosinophils Absolute Auto 0.26 K/mm3 (0.02-0.50); Eosinophils Percent Auto 4.5 % (1.0-6.0); Hematocrit 41.9 % (35.0-42.0); Hemoglobin 13.7 g/dL (11.7-13.8); Immature Granulocyte Absolute 0.01 K/mm3 (0.00-0.00); Immature Granulocyte Percent A 0.2 % (0.0-0.0); Lymphocytes Absolute Auto 1.43 K/mm3 (1.10-4.50); Lymphocytes Percent Auto 24.6 % (18.0-42.0); Mean Corpuscular HGB Conc 32.7 g/dL (32-36); Mean Corpuscular Hemoglobin 31.2 pg (27.0-31.0); Mean Corpuscular Volume 95.4 fL (78.0-102.0); Mean Platelet Volume 9.9 fl (9.2-11.8); Monocytes Absolute Auto 0.42 K/mm3 (0.10-0.90); Monocytes Percent Auto 7.2 % (2.0-11.0); Neutrophils Absolute Auto 3.64 K/mm3 (1.70-7.20); Neutrophils Percent Auto 62.5 % (50.0-70.0); Platelet Count Result 261 K/mm3 (150-420); Red Blood Count 4.39 M/mm3 (4.20-5.40); Red Cell Distribution Width 12.1 % (11.6-14.4); White Blood Count 5.8 K/mm3 (4.8-10.8)
[2024-03-14 13:19] LABS: Carbon Dioxide 28 mmol/L (21-32); Chloride 103 mmol/L (98-108); Potassium 4.3 mmol/L (3.5-5.1); Sodium 139 mmol/L (136-145)
[2024-03-14 13:20] LABS: Alanine Aminotransferase 24 U/L (14-59); Albumin Level 3.7 g/dL (3.4-5.0); Alkaline Phosphatase 106 U/L (46-116); Anion Gap 8 mmol/L (4-12); Aspartate Amino Transferase 17 U/L (15-37); Bilirubin,Total 0.4 mg/dL (0.00-1.00); Blood Urea Nitrogen 11 mg/dL (7-18); Calcium 9.3 mg/dL (8.5-10.1); Estimated Glomerular Filt Rate > 60; Glucose 91 mg/dL (70-99); Osmolality Calculated 287 mOsm/kg (285-295); Total Protein 6.8 g/dL (6.4-8.2)
== END 2024-03-14 12:25 | disposition home or self-care (01) ==
LOC: CHSLAB 12:26
PROVIDERS: PCP Internal Medicine; Visit Provider Internal Medicine
DX: R05.9 Cough, unspecified (principal)
CPT/HCPCS: 36415; 71046; 80053; 85025

== ENCOUNTER 2024-03-16 10:46 | Outpatient (CLI) | payer MEDICARE, OTHER, SELFPAY | END 2024-03-16 10:47 | disposition home or self-care (01) | LOC: CHSCARD 10:50 | PROVIDERS: PCP Internal Medicine; Visit Provider Internal Medicine | DX: R05.9 Cough, unspecified (principal) | CPT/HCPCS: 94060; 94726; 94729 ==

== ENCOUNTER 2024-04-07 00:45 | Day surgery (SDC) | payer MEDICARE, OTHER, SELFPAY ==
[2024-02-26 08:15] VITALS: BMI 27.5
--- NOTE | 2024-02-26 08:22 | PC.NURSE ---
Addendum entered by Jori Sousa RN 02/26/24 08:40: Check with Dr Cuellar's office if need to hold aspirin. Original Note: Report to the Outpatient Waiting Room, entrance under the green pavilion located off [facility], at time _1145_ on date _[id number]_. Planned Procedure Time: _145pm_.? Time changes happen often and if your time is changed the preop area will call you the afternoon before. - You and your visitor will be asked to self-screen and do not enter if you have any COVID symptoms. Please call surgeon if you need to reschedule. - A mask is optional within the hospital at this time. May have clear liquids (water, carbonated beverages, clear teas, apple juice) until 6am with a maximum of 20 ounces. No drinking after 6am. - No food from midnight until time of surgery and no smoking Take only the following medications with a SIP of water on the morning of surgery: ___Levothyroxine DO NOT STOP ANY OF YOUR OTHER PRESCRIPTION MEDICATIONS PRIOR TO SURGERY EXCEPT THE FOLLOWING Medications to discontinue per physician ____Vitamins and glucosamine Date to take last iyie__15-05-1969 Please no make-up, nail kazakh, hairspray, perfume, deodorant, or body powder the day of surgery.? No jewelry (including any body piercings) or valuables the day of surgery, leave them at home.? Please take a shower or bath the night before, or the morning of, surgery with an antibacterial soap.? Wear comfortable, loose fitting clothing.? - Jewelry must be removed prior to entering the operating room.? Rings and piercings that are not removed may be cut off. - The hospital will not accept responsibility for valuables.? - Please leave all valuables, including medications, at home the day of surgery. If you are going home after surgery, a licensed swing driver must drive you home.? - NO public transportation without another adult if you receive anesthesia. - We recommend that an adult stay with you for 24 hours following discharge. - We also recommend that you do not drive, make important decision, drink alcoholic beverages, or take any drugs that were not prescribed by your health care provider for at least 24 hours after your discharge time. Follow any additional instructions given to you from your surgeon. Telephone instructions given to __Mariel___and asked if any additional questions and then verbalized understanding. Patient advised to call surgeon office or pre surgery nurse liaison [phone] if any additional questions.
--- NOTE | 2024-03-31 11:18 | PC.NURSE ---
Report to the Outpatient Waiting Room, entrance under the green pavilion located off [facility], at time _0715_ on date _[id number]_. Planned Procedure Time: _0915_.? Time changes happen often and if your time is changed the preop area will call you the afternoon before. - You and your visitor will be asked to self-screen and do not enter if you have any COVID symptoms. Please call surgeon if you need to reschedule. - A mask is optional within the hospital at this time. - No food or drink from midnight until time of surgery and no smoking Take only the following medications with a SIP of water on the morning of surgery: ___Levothyroxine DO NOT STOP ANY OF YOUR OTHER PRESCRIPTION MEDICATIONS PRIOR TO SURGERY EXCEPT THE FOLLOWING Medications to discontinue per physician ___Vitamins and Glucosamine Date to take last vtlw___[id number] Cuellar's office and ask about holding aspirin. Please no make-up, nail yakut, hairspray, perfume, deodorant, or body powder the day of surgery.? No jewelry (including any body piercings) or valuables the day of surgery, leave them at home.? Please take a shower or bath the night before, or the morning of, surgery with an antibacterial soap.? Wear comfortable, loose fitting clothing.? - Jewelry must be removed prior to entering the operating room.? Rings and piercings that are not removed may be cut off. - The hospital will not accept responsibility for valuables.? - Please leave all valuables, including medications, at home the day of surgery. If you are going home after surgery, a licensed package delivery driver must drive you home.? - NO public transportation without another adult if you receive anesthesia. - We recommend that an adult stay with you for 24 hours following discharge. - We also recommend that you do not drive, make important decision, drink alcoholic beverages, or take any drugs that were not prescribed by your health care provider for at least 24 hours after your discharge time. Follow any additional instructions given to you from your surgeon. Telephone instructions given to __Mariel___and asked if any additional questions and then verbalized understanding. Patient advised to call surgeon office or pre surgery nurse liaison [phone] if any additional questions.
--- NOTE | ~2024-04-07 | XR_ITS ---
EXAMINATION: XR surgery orthopedic DATE: 04/07/2024 10:17 INDICATION: Right second-fourth distal interphalangeal arthrodesis. TECHNIQUE: 2 fluoroscopic images of the digits of the right hand were obtained during procedure perfo rmed by Dr. Cuellar. Radiologist was not present for the imaging or procedure. The amount of fluor oscopy time used during this procedure was 0.5 minutes. COMPARISON: None. FINDINGS: Arthrodeses of the right second-fourth distal interphalangeal joints, each fixed with an axially dire cted cannulated compression screw. Alignment of the arthrodeses is near-anatomic. 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 No fractures. IMPRESSION: 1. Expected appearance post right second-fourth distal interphalangeal arthrodesis with compression s crew fixations. See procedure note for further detail. Reviewed, dictated and finalized at location A. IMPRESSION: 1. Expected appearance post right second-fourth distal interphalangeal arthrode sis with compression screw fixations. See procedure note for further detail.
[2024-04-07 07:00] VITALS: BP 156/82; PULSE 93; RESP 16; TEMP 36.4; O2SAT 99
--- NOTE | 2024-04-07 07:01 | PM.HPGS ---
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 No interval change in medical history or symptoms. Patient recalls previous discussion of benefits and alternatives to procedure. Continues to desire to proceed with right index, middle and ring finger distal interphalangeal joint fusion. Reviewed procedure, post-op expectations and risks including but not limited to bleeding, infection, injury to tendon/nerve/vessel, decreased hand function, stiffness, RSD, no change or worsening of symptoms, malunion, nonunion, hardware complications. I discussed the possible use of assistants and their participation in the case. Patient stated understanding and signed the consent form wishing to proceed. Review of Systems Review of Systems: All systems reviewed & are unremarkable except as noted in HPI and below PMFSH Past Medical History Medical History Hyperlipidemia Hypertension Hypothyroid Skin cancer Social History Social History Smoking status: Never smoker Substance use: never Lack of Transportation: No Lack of Food: Never True Current Housing: I Have Housing Concerned About Future Housing: No Difficulty Paying Gas/Electric Bills: No Difficulty Paying for Meds: No Currently Unemployed: Decline to Answer Education: High School Diploma/GED Difficulty w/ Childcare or Family Care: No Living arrangements: alone Spiritual care concerns: No Meds Home Medications and Allergies Home Medications Medication Instructions Recorded Confirmed Type levothyroxine 200 mcg tablet 100 mcg PO DAILY 05/06/22 04/07/24 History (Euthyrox) losartan 100 mg tablet 50 mg PO DAILY 05/06/22 03/31/24 History simvastatin 10 mg tablet (Zocor) 10 mg PO DAILY 05/06/22 03/31/24 History ascorbic acid (vitamin C) 1,000 mg 1 g PO DAILY 12/03/23 03/31/24 History capsule aspirin 81 mg tablet,delayed 81 mg PO DAILY 12/03/23 03/31/24 History release (Adult Aspirin Regimen) glucosamine sulfate 500 mg tablet 500 mg PO BID 12/03/23 03/31/24 History (Glucosamine) magnesium 200 mg tablet 200 mg PO DAILY 12/03/23 03/31/24 History vzdllzxqkbkn-xtbvuxde-bvgus acid 1 cap PO DAILY 12/03/23 03/31/24 History 400 mcg-vitamin K 80 mcg capsule (Multi For Her 50 Plus) vitamin E (dl, acetate) 45 mg (100 45 mg PO DAILY 12/03/23 03/31/24 History unit) capsule famotidine 40 mg tablet 40 mg PO HS 03/31/24 03/31/24 History Allergies Allergy/AdvReac Type Severity Reaction Status Date / Time No Known Allergies Allergy Verified 03/31/24 11:14 Exam Narrative: unchanged Assessment and Plan Assessment and plan (1) 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
--- NOTE | 2024-04-07 07:01 | W.PM.PROC2 ---
Procedure Note - Detailed Date of Procedure 04/07/24 Pre-op Diagnosis right index, middle, ring finger dipjoint osteoarthritis Post-op Diagnosis Same Procedure Performed Right index, middle, ring dipj fusion Surgeon Cisco Cuellar MD Generalist maria esther vásquez pa-c Anesthesia MAC Description of Procedure INFORMED CONSENT: The patient was seen and examined and marked in the pre-op area.? The patient signed the consent form. PROCEDURE IN DETAIL:The patient taken back to OR on the stretcher in supine position. Time out performed with anesthesia, surgeon and staff agreeing on patient's name site and surgery to be performed SCDs were placed on the lower extremities and inflated. A tourniquet was placed on {right} upper extremity and antibiotics given IV After anesthesia administered sedation I injected {8}cc 1%lido and 0.5% marcaine plain for digital blocks in the palm The?{right upper extremity}?was prepped and draped in sterile fashion the??{right upper extremity} was? exsanguinated with Esmarch bandage and tourniquet inflated to 250mmHg Took my attention 1st to the right index finger where I proceeded with making an H style incision over the dorsum of the IP joint through skin and dermis with a 15 blade scalpel. Littler scissors were used to spread down to the extensor tendon. the extensor tendon was released sharply from the distal phalanx allowing access to the joint. The collateral ligaments were sharply released until I was able to achieve full exposure of the articular surfaces with finger flexion. A rongeur was used to denude the articular cartilage and removed osteophytes to create a good approximated surface between the middle and distal phalanx. Next I proceeded with placing a K-wire in a retrograde fashion . The length of the K-wire was measured going back to the PIP joint. I then proceeded with drilling over the K-wire and then placing an Arthrex 2.5mm diameter 30 mm screw in retrograde fashion to secure the proximal and distal phalanx fusion site. This was verified on multiple views of fluoroscopy. There was good compression across the fusion site and positioning of the digit. i irrigated with normal saline and closed with 5-0 chromic. Next I took my attention to the right middle finger where I proceeded with making an H style incision over the dorsum of the IP joint through skin and dermis with a 15 blade scalpel. Littler scissors were used to spread down to the extensor tendon. the extensor tendon was released sharply from the distal phalanx allowing access to the joint. The collateral ligaments were sharply released until I was able to achieve full exposure of the articular surfaces with finger flexion. A rongeur was used to denude the articular cartilage and removed osteophytes create a good approximated surface of the middle and distal phalanx. Next I proceeded with placing a K-wire in a retrograde fashion below the fingernail. The length of the K-wire was measured going back to the PIP joint. I then proceeded with drilling over the K-wire and then placing an Arthrex 2.5mm diameter 32mm length screw in retrograde fashion to secure the proximal and distal phalanx fusion site. This was verified on multiple views of fluoroscopy. There was good compression across the fusion site and positioning of the digit. i irrigated with normal saline and closed with 5-0 chromic. Next I took my attention to the right ring finger where I proceeded with making an H style incision over the dorsum of the IP joint through skin and dermis with a 15 blade scalpel. Littler scissors were used to spread down to the extensor tendon. the extensor tendon was released sharply from the distal phalanx allowing access to the joint. The collateral ligaments were sharply released until I was able to achieve full exposure of the articular surfaces with finger flexion. A rongeur was used to denude the articular cartilage and removed osteophytes create a
--- NOTE | 2024-04-07 07:34 | P.PNAN_ITS ---
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 Patient Data Age: 83 Gender: F Height: 1.63 m Weight: 72.7 kg Allergies Allergy/AdvReac Type Severity Reaction Status Date / Time No Known Allergies Allergy Verified 03/31/24 11:14 Home Medications Medication Instructions Recorded Confirmed Type levothyroxine 200 mcg tablet 100 mcg PO DAILY 05/06/22 03/31/24 History (Euthyrox) losartan 100 mg tablet 50 mg PO DAILY 05/06/22 03/31/24 History simvastatin 10 mg tablet (Zocor) 10 mg PO DAILY 05/06/22 03/31/24 History ascorbic acid (vitamin C) 1,000 mg 1 g PO DAILY 12/03/23 03/31/24 History capsule aspirin 81 mg tablet,delayed 81 mg PO DAILY 12/03/23 03/31/24 History release (Adult Aspirin Regimen) glucosamine sulfate 500 mg tablet 500 mg PO BID 12/03/23 03/31/24 History (Glucosamine) magnesium 200 mg tablet 200 mg PO DAILY 12/03/23 03/31/24 History scyvophsandq-rrmhurch-koqex acid 1 cap PO DAILY 12/03/23 03/31/24 History 400 mcg-vitamin K 80 mcg capsule (Multi For Her 50 Plus) vitamin E (dl, acetate) 45 mg (100 45 mg PO DAILY 12/03/23 03/31/24 History unit) capsule famotidine 40 mg tablet 40 mg PO HS 03/31/24 03/31/24 History Patient hx anesthesia problems: none Family hx anesthesia problems: none Results Review: All pre-operative results and documents have been reviewed as part of the pre- operative evaluation. [facility] Past Medical History Medical History Hyperlipidemia Hypertension Hypothyroid Skin cancer Social History Social History Smoking status: Never smoker Substance use: never Lack of Transportation: No Lack of Food: Never True Current Housing: I Have Housing Concerned About Future Housing: No Difficulty Paying Gas/Electric Bills: No Difficulty Paying for Meds: No Currently Unemployed: Decline to Answer Education: High School Diploma/GED Difficulty w/ Childcare or Family Care: No Living arrangements: alone Spiritual care concerns: No Anes - Eval Final PreProcedure Day of Procedure 04/07/24 07:34 Patient weight: overweight Heart: regular rate and rhythm Lungs: clear to auscultation Airway: Mallampati scale class II Neurological: alert and oriented Last oral intake: >/= 8 hours ASA classification: III Emergent: no Anesthetic plan: proceed Anesthesia type and monitoring: general GIVS and standard monitoring Results Review: All pre-operative results and documents have been reviewed as part of the pre- operative evaluation. Informed Consent: The patient's anesthetic plan and its attendant risks and benefits were discussed with the patient/family/POA. Questions were solicited and answers provided to the satisfaction of the patient/family/POA.
[2024-04-07] MEDS: LACTATED RINGERS 1,000 ML 30 ML IV CONT (08:15)
[2024-04-07 08:16] VITALS: BMI 27.6
[2024-04-07] MEDS: ceFAZolin 2 GM/D5W 50 ML 2 GM/50 ML BAG IVPB (09:00)
[2024-04-07] MEDS: LIDOCAINE HCL 1% LOCAL INJ 10 ML VIAL 20 ML INFILTRATE (09:08)
[2024-04-07 10:40] VITALS: BP 122/61; PULSE 72; RESP 16; O2SAT 96
[2024-04-07 11:10] VITALS: BP 140/69; PULSE 70; RESP 16; O2SAT 97
[2024-04-07 11:40] VITALS: BP 148/97; PULSE 75; RESP 16
[2024-04-07 12:04] VITALS: BP 157/80; PULSE 73; RESP 16
== END 2024-04-07 12:27 | disposition home or self-care (01) ==
PROVIDERS: PCP Internal Medicine; Visit Provider Plastic Surgery
PROC: (CPT 26860; principal; 2024-04-07 09:00)
DX: M15.1 Heberden's nodes (with arthropathy) (principal); I10 Essential (primary) hypertension; E78.5 Hyperlipidemia, unspecified; E03.9 Hypothyroidism, unspecified; Z79.82 Long term (current) use of aspirin
CPT/HCPCS: 26860; 26861 ×2; 99199; C1713; J0690; J1100; J2003; J2405; J2704; J3010; J7120

== ENCOUNTER 2024-04-19 12:19 | Outpatient (CLI) | payer MEDICARE, OTHER, SELFPAY ==
--- NOTE | ~2024-04-19 | XR_ITS ---
EXAMINATION: XR hand RT min 3V DATE: 04/19/2024 12:37 INDICATION: Right hand Heberden's nodes. TECHNIQUE: 4 views of right hand were obtained. COMPARISON: Right hand radiographs 12/29/2022 FINDINGS: Alignment is normal. No fracture. There are changes of ankylosis of second, third, and four th distal interphalangeal joints with headless screws. There is severe osteoarthritis of first carpom etacarpal joint, first interphalangeal joint, and fifth distal interphalangeal joint. There is mild t o moderate osteoarthritis of the proximal interphalangeal joints. IMPRESSION: 1. Ankylosis of the second, third, and fourth distal interphalangeal joints. 2. Polyarticular osteoarthritis. Reviewed, dictated and finalized at location B.
== END 2024-04-19 12:20 | disposition home or self-care (01) ==
PROVIDERS: PCP Internal Medicine; Visit Provider Physician Assistant Surgical
DX: M24.641 Ankylosis, right hand (principal); M25.541 Pain in joints of right hand; M15.1 Heberden's nodes (with arthropathy)
CPT/HCPCS: 73130

== ENCOUNTER 2024-04-28 10:56 | Outpatient (CLI) | payer MEDICARE, OTHER, SELFPAY ==
[2024-04-28 11:16] LABS: Hematocrit 46.7 % (35.0-42.0); Hemoglobin 16.1 g/dL (11.7-13.8); Mean Corpuscular HGB Conc 34.5 g/dL (32-36); Mean Corpuscular Hemoglobin 31.6 pg (27.0-31.0); Mean Corpuscular Volume 91.7 fL (78.0-102.0); Platelet Count Result 313 K/mm3 (150-420); Red Blood Count 5.09 M/mm3 (4.20-5.40); Red Cell Distribution Width 11.7 % (11.6-14.4); White Blood Count 6.1 K/mm3 (4.8-10.8)
[2024-04-28 11:40] LABS: D Dimer 0.71 mg/L (0.19-0.50)
[2024-04-28 12:29] LABS: Anion Gap 12 mmol/L (4-12); Blood Urea Nitrogen 9 mg/dL (7-18); Carbon Dioxide 24 mmol/L (21-32); Chloride 100 mmol/L (98-108); Potassium 4.2 mmol/L (3.5-5.1); Sodium 136 mmol/L (136-145)
[2024-04-28 12:30] LABS: Alanine Aminotransferase 25 U/L (14-59); Albumin Level 3.7 g/dL (3.4-5.0); Alkaline Phosphatase 100 U/L (46-116); Aspartate Amino Transferase 24 U/L (15-37); Bilirubin,Total 0.5 mg/dL (0.00-1.00); Calcium 9.9 mg/dL (8.5-10.1); Cholesterol 136 mg/dL (0-200); Creatine Kinase 37 U/L (26-192); Estimated Glomerular Filt Rate 56; Glucose 118 mg/dL (70-99); HDL Direct 58 mg/dL (40-60); LDL Cholesterol Calculated 65 mg/dL (<130); NT Pro B Type Natriuretic Pept 43 pg/mL (0-450); Osmolality Calculated 281 mOsm/kg (285-295); Total Protein 7.5 g/dL (6.4-8.2); Triglycerides 67 mg/dL (0-150); Troponin I 22.2 ng/L (0.00-60.4)
[2024-04-28 12:45] LABS: Band Neutrophils Percent 0 % (0-6); Eosinophils Absolute Manual 0.06 K/mm3 (0.02-0.50); Eosinophils Percent Manual 1 % (1-6); Lymphocytes Absolute Manual 0.91 K/mm3 (1.1-4.5); Lymphocytes Percent Manual 15 % (18-44); Monocytes Absolute Manual 0.18 K/mm3 (0.1-0.90); Monocytes Percent Manual 3 % (3-9); Neutrophils Absolute Manual 4.94 K/mm3 (1.7-7.2); Neutrophils Percent Manual 81 % (46-73); Platelet Estimate Adequate (Adequate); Total Cells Counted 100
== END 2024-04-28 10:57 | disposition home or self-care (01) ==
LOC: CHSLAB 10:59
PROVIDERS: PCP Internal Medicine; Visit Provider Internal Medicine
DX: R00.0 Tachycardia, unspecified (principal); I10 Essential (primary) hypertension; E78.5 Hyperlipidemia, unspecified; R06.00 Dyspnea, unspecified
CPT/HCPCS: 36415; 80053; 80061; 82550; 82553; 83880; 84484; 85025; 85380

== ENCOUNTER 2024-04-28 14:48 | Outpatient (CLI) | payer MEDICARE, OTHER, SELFPAY ==
--- NOTE | ~2024-04-28 | CT_ITS ---
EXAMINATION: CTA chest PE protocol DATE: 04/28/2024 15:25 INDICATION: Tachycardia. Elevated d-dimer. TECHNIQUE: Computed tomography angiography (CTA) of the chest was performed with 100 mL Omnipaque-350 intravenous contrast timed to evaluate the pulmonary arteries. Coronal maximum intensity projection 3D-reconstructions were created by the technologist. Automated exposure control and iterative reconst ruction technique were employed. The dose-length product was 191.00 mGy-cm. COMPARISON: Chest CT 10/28/2021 FINDINGS: The lungs demonstrate mild atelectasis. There are a few nodules in right middle lobe measur ing up to 3 mm, likely benign. No pleural effusion. The heart size is normal. There are coronary stefania ry calcifications. No pericardial effusion. There is no pulmonary embolus. There is severe cervical s pondylosis and moderate thoracic spondylosis. Thoracic dextroscoliosis is noted. IMPRESSION: 1. No pulmonary embolus. Reviewed, dictated and finalized at location A. TIENT NURSING AIDE IMPRESSION: 1. No pulmonary embolus.
== END 2024-04-28 14:49 | disposition home or self-care (01) ==
LOC: CHSIMG 14:55
PROVIDERS: PCP Internal Medicine; Visit Provider Internal Medicine
DX: R79.1 Abnormal coagulation profile (principal); R00.0 Tachycardia, unspecified
CPT/HCPCS: 36415; 71275; 80053; 80061; 82550; 82553; 83880; 84484; 85025; 85380; Q9967

== ENCOUNTER 2024-05-03 10:52 | Outpatient (CLI) | payer MEDICARE, OTHER, SELFPAY ==
--- NOTE | ~2024-05-03 | XR_ITS ---
EXAMINATION: XR hand RT min 3V DATE: 05/03/2024 11:10 INDICATION: Hypodense nodes TECHNIQUE: Posteroanterior, oblique and lateral views of the right hand were obtained. COMPARISON: 04/19/2024 FINDINGS: Diffuse osteopenia. Right second, third and fourth distal interphalangeal arthrodesis, each fixed wit h an axially directed cannulated compression screws. Alignment remains essentially anatomic. No fract ure. Polyarticular osteoarthritis, severe at the first carpometacarpal, first interphalangeal and fif th distal interphalangeal joints and moderate at the third, fourth and fifth proximal interphalangeal joints and mild at the remaining joints at the right hand and wrist. Small amount of chondrocalcinos is in the region of the triangular fibrocartilage complex. IMPRESSION: 1. Moderate to severe polyarticular osteoarthritis at the right hand with screw fixations at second, third and fourth distal interphalangeal arthrodesis. Reviewed, dictated and finalized at location B. [employer]IVE [employer]
== END 2024-05-03 10:53 | disposition home or self-care (01) ==
LOC: ANHIMG 10:55
PROVIDERS: PCP Internal Medicine; Visit Provider Physician Assistant Surgical
DX: M15.1 Heberden's nodes (with arthropathy) (principal); Z98.1 Arthrodesis status
CPT/HCPCS: 73130

== ENCOUNTER 2024-07-13 13:32 | Outpatient (CLI) | payer MEDICARE, OTHER, SELFPAY ==
--- NOTE | ~2024-07-13 | XR_ITS ---
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 FINDINGS: No acute fracture is identified. Advanced osteoarthritis is identified. Compression screw fixation across right second through fourth distal interphalangeal joints. Central erosions with a gullwing configuration is redemonstrated consistent with erosive osteoarthrit is. Severe osteoarthritic change at the right first and fifth distal interphalangeal joints. Severe osteoarthritic change is also noted at the first carpal metacarpal joints base. IMPRESSION: Redemonstration of severe polyarticular osteoarthritis with changes of erosive osteoarthritis within the multiple of the distal interphalangeal joint spaces. Reviewed, dictated and finalized at location A. ERY ATTENDANT
== END 2024-07-13 13:33 | disposition home or self-care (01) ==
PROVIDERS: PCP Internal Medicine; Visit Provider Plastic Surgery
DX: M19.041 Primary osteoarthritis, right hand (principal)
CPT/HCPCS: 73130

== ENCOUNTER 2024-10-14 07:50 | Outpatient (CLI) | payer MEDICARE, SELFPAY ==
--- OUTSIDE RECORDS SUMMARY | 2024-10-14 07:53 | XMS_ITS | Clinical Summary ---
Author Organization [facility] Address [address] [place] [address] Care Team Providers Care Svp Chief Marketing Officer Name Role Phone Barry Arndt MD Primary Care Provider [phone] Allergies No known active allergies Medications ascorbic acid (VITAMIN C) 1,000 mg tablet Take 1 tablet (1,000 mg total) by mouth daily Active aspirin 81 mg enteric coated tablet Take 1 tablet (81 mg total) by mouth daily Active folic acid/multivit-m in/lutein (CENTRUM SILVER ORAL) Take by mouth Active magnesium gluconate 200 mg tablet 1.25 tablets (250 mg total) Active zaykpuwf-ctiv-y ollag-hyalur ac 792-240-22-2 mg capsule Take by mouth Active simvastatin (ZOCOR) 20 mg tablet Take 0.5 tablets (10 mg total) by mouth nightly 90 tablet 3 2 Active levothyroxine (SYNTHROID) 200 mcg tablet Take 0.5 tablets (100 mcg total) by mouth client solutions specialist before breakfast 15 tablet 3 Active losartan (COZAAR) 50 mg tablet Take 0.5 tablets (25 mg total) by mouth daily 15 tablet 3 Active Active Problems Problem Noted Date Diagnosed Date Pulmonary HTN 10/03/2022 Essential hypertension 12/10/2021 Mixed hyperlipidemia 12/10/2021 Coronary artery calcification 12/10/2021 Encounters Date Type Department Care Team Description 10/13/2024 11:15 AM CDT Therapy [facility] Occup[facility] Therapy [address] [place], [place] [id number] Ary Espinal, OT Heberden's nodes (with arthropathy) (Primary Dx) 10/04/2024 10:30 AM CDT Therapy [facility] Occup[facility] [address] [place] [phone] Ary Espinal, OT Heberden's nodes (with arthropathy) (Primary Dx) 09/30/2024 11:15 AM CDT Therapy [facility] Occup[facility] [address] [place] [phone] Ary Espinal, OT Heberden's nodes (with arthropathy) (Primary Dx) 09/26/2024 11:15 AM CDT Therapy [facility] Occup[facility] [address] [place] [phone] Mitra Linares, OT Heberden's nodes (with arthropathy) (Primary Dx) 09/23/2024 10:30 AM CDT Therapy [facility] Occup[facility] [address] [place] [phone] Ary Espinal, OT Heberden's nodes (with arthropathy) (Primary Dx) 09/19/2024 9:00 AM CDT Therapy [facility] [address] [place] [phone] Ary Espinal, OT Heberden's nodes (with arthropathy) (Primary Dx) 09/16/2024 1:00 PM CDT Therapy [facility] [address] [place] [phone] Ary Espinal, OT Heberden's nodes (with arthropathy) (Primary Dx) 09/09/2024 1:00 PM CDT Therapy [facility] [address] [place] [phone] Ary Espinal, OT Heberden's nodes (with arthropathy) (Primary Dx) 09/09/2024 Plan of Care Documentation [facility] [address] [place] [phone] 09/05/2024 9:00 AM CDT Therapy [facility] [address] [place] [phone] Ary Espinal, OT Heberden's nodes (with arthropathy) (Primary Dx) 09/02/2024 10:15 AM CDT Therapy [facility] [address] [place] [phone] Ary Espinal, OT Heberden's nodes (with arthropathy) (Primary Dx) 08/30/2024 10:00 AM CDT Therapy [facility] [address] [place] [phone] Ary Espinal, OT Heberden's nodes (with arthropathy) (Primary Dx) 08/18/2024 11:15 AM SIDE PIECE COVERER Therapy [facility] [address] [place] [address] Ary Espinal, OT Heberden's nodes (with arthropathy) (Primary Dx) 08/16/2024 11:15 AM SIDE PIECE COVERER Therapy [facility] [address] [place] [phone] Ary Espinal, OT Heberden's nodes (with arthropathy) (Primary Dx) 08/11/2024 11:15 AM SIDE PIECE COVERER Therapy [facility] [address] [place] [phone] Ary Espinal, OT Heberden's nodes (with arthropathy) (Primary Dx) 08/11/2024 Plan of Care Documentation [facility] [address] [place] [phone] 08/02/2024 10:00 AM SIDE PIECE COVERER Therapy [facility] [address] [place] [address] Ary Espinal, OT Heberden's nodes (with arthropathy) (Primary Dx) 07/28/2024 11:15 AM SIDE PIECE COVERER Therapy [facility] [address] [place] [address] Ary Espinal, OT Heberden's nodes (with arthropathy) (Primary Dx) 07/21/2024 11:15 AM SIDE PIECE COVERER Therapy [facility] [address] [place] [address] Ary Espinal, OT Heberden's nodes (with arthropathy) (Primary Dx) 07/19/2024 11:15 AM SIDE PIECE COVERER Therapy [facility] [address] [place], [place] [phone] Ary Espinal, OT Heberden's nodes (with arthropathy) (Primary Dx) from Last 3 Months Surgical History Surgery Date Site/Laterality Comments LAMINECTOMY Laminectomy BREAST CYST ASPIRATION 06/22/1983 Right Medical History Medical History Date Comments Hx Other Medical Acitinic kerato ses Osteoarthritis Osteoarthritis Hypothyroidism Hypothyroidism Hx Other Medical Verruca Vulgari s 3 rd finger Hx Other Medical L 2 finger stra ightening Hypertension Hypertension Hx Other Medical dyslipidemia Hx Other 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 Fibrocystic breast Edema Family History Medical History Relation Name Comments Coronary artery disease Father Cheyanne nary Artery Disease; Cause of : Coronary Artery Disease Stroke Mother Stroke; Cause o f : Stroke Other Sister 3 homicide; Cause of : homicide Other Sister 4 post Bariatric OR; Cause of : post Bariatric OR Breast cancer Neg Hx Ovarian cancer Neg Hx Thyroid cancer Neg Hx Relation Name Status Comments Father (Age 55) Mother (Age 86) Sister 1 Sister 2 Sister 3 Sister 4 Social History Tobacco Use Types Packs/Day Years Used Date Smoking Tobacco: Never Tobacco Cessation:Counseling Given: Not Answered Alcohol Use Standard Drinks/Week Comments No 0 (1 standard drink = 0.6 oz pur e alcohol) Comments No Sex and Gender Information Value Date Recorded Sex Assigned at Not on file Legal Sex Female 2:51 AM SIDE PIECE COVERER Gender Identity Not on file Sexual Orientation Not on file Obstetrics History Para Term AB IAB SAB Ectopic Multiple Livin g Live Births 4 4 4 Date Outcome GA Total Labor Labor/2nd/3rd Weight Sex Type Anes PTL Kami A1 A5 Name Clin Term Term Term Term Last Filed Vital Signs Vital Sign Reading Time Taken Comments Blood Pressure 134/74 04/10/2023 10:45 AM CDT Pulse 75 04/10/2023 10:45 AM CDT Temperature - - Respiratory Rate - - Oxygen Saturation 99% 04/10/2023 10:45 AM CDT Inhaled Oxygen Concentration - - Weight 73.8 kg (162 lb 9.6 oz) 04/10/2023 10:45 AM CDT Height 162.6 cm (5' 4 ) 02/08/2024 12:26 PM CDT Body Mass Index 27.91 04/10/2023 10:45 AM CDT Plan of Treatment Health Maintenance Due Date Last Done Comments Depression Screening 1940 Fall Risk Assessment 1940 Hepatitis B Screening 1960 Zoster Vaccine (1 of 2) 1992 Well Visit 65+ 2007 Osteoporosis Screening-Bone Density Scan 11/18/2019 11/17/2017 Influenza Vaccine (Season Ended) 2025 03/29/2020, 03/29/2019, 03/27/2018, Additional history exists DTaP/Tdap/Td Vaccine (2 - Td or Tdap) 07/03/2027 07/03/2017 Pneumococcal vaccine 65+ Completed 09/19/2016, 01/2012 Procedures Procedure Name Priority Date/Time Associated Diagnosis Comments DEXA AXIAL SKELETON BONE DENSITY 1 OR MORE SITES Schedule Routine, Read Routine (OP Routine) 11/17/2017 8:52 AM CDT Screening for osteoporosis from Last 3 Months or Most Recently Relevant to Health Maintenance Results * Dexa Axial Skeleton Bone Density 1 or 2 Site (11/17/2017 8:52 AM CDT) Anatomical Region Laterality Modality Body N/A Other Impressions 11/17/2017 8:55 AM CDT 1. Normal bone mineral density of the lumbar spine. 2. Osteopenia in the left hip region. 3. 10 year fracture risk for major osteoporotic fracture 20% and hip fracture 1.7%. COMMENT: W.H.O. defines the T-score of between -1 and -2.5 as osteopenia, the level at which there may be an increased risk of developing osteoporosis and fractures in the future. Osteoporosis is defined as T-score lower than -2.5 (significantly increased risk of fracture due to osteoporosis). T-score is a comparison to peak bone mineral density of young adult reference population. Z-score is a comparison to bone mineral density of sex and age group population. Electronically signed by: Jamey Platt M.D. Narrative 11/17/2017 8:55 AM CDT EXAM: DEXA Bone Density Axial HISTORY: Encounter for screening for osteoporosis Assess bone density COMPARISON: None FINDINGS: The mean bone mineral content of the lumbar spine is 0.938 g/cm2 . The T-score is -1.0 consistent with normal bone mineral density. The mean bone mineral content of the hip is 0.720 g/cm2 . The T-score is -1.2 consistent with osteopenia. Procedure Note Jamey Platt MD - 11/17/2017 EXAM: DEXA Bone Density Axial HISTORY: Encounter for screening for osteoporosis Assess bone density COMPARISON: None FINDINGS: The mean bone mineral content of the lumbar spine is 0.938 g/cm2 . The T-score is -1.0 consistent with normal bone mineral density. The mean bone mineral content of the hip is 0.720 g/cm2 . The T-score is -1.2 consistent with osteopenia. IMPRESSION: 1. Normal bone mineral density of the lumbar spine. 2. Osteopenia in the left hip region. 3. 10 year fracture risk for major osteoporotic fracture 20% and hip fracture 1.7%. COMMENT: W.H.O. defines the T-score of between -1 and -2.5 as osteopenia, the level at which there may be an increased risk of developing osteoporosis and fractures in the future. Osteoporosis is defined as T-score lower than -2.5 (significantly increased risk of fracture due to osteoporosis). T-score is a comparison to peak bone mineral density of young adult reference population. Z-score is a comparison to bone mineral density of sex and age group population. Electronically signed by: Jamey Platt M.D. Barry Arndt MD [facility] DXA PROCEDURES Final Result from Last 3 Months or Most Recently Relevant to Health Maintenance Insurance MEDICARE [facility] MEDICARE [facility] [place] MEDICARE [facility] Member Subscriber Plan / Payer (Ef fective 2022-Present) Name:Mariel Nguyen Relation to Subscriber:Self Name:Mariel Nguyen Payer ID:[id number] Group ID:[id number] Type:[employer] Address: [address] [place] [address] ANDREW [place] [id number] Care Teams Svp Chief Marketing Officer Relationship Specialty Start Date End Date Barry Arndt MD PCP - General 10/19/12
--- OUTSIDE RECORDS SUMMARY | 2024-10-14 07:53 | XMS_ITS | Clinical Summary ---
Author Organization [facility] Address [facility] [place] [address] Care Team Providers Care Income Tax Adjuster Name Role Phone Barry Arndt MD Primary Care Provider [phone] Allergies No known active allergies Medications simvastatin (ZOCOR) 20 MG tablet Take 1 tablet (20 mg total) by mouth nightly at bedtime. Active losartan (COZAAR) 50 MG tablet Take 1 tablet (50 mg total) by mouth daily. Active levothyroxine (SYNTHROID) 100 MCG tablet Take 1 tablet (100 mcg total) by mouth every morning. Active Ascorbic Acid (VITAMIN C) 100 MG tablet Take 1 tablet (100 mg total) by mouth daily. Active Glucosamine 500 MG Cap Active Vitamin D3 125 mcg Tab Take 1 tablet (125 mcg total) by mouth daily. Active magnesium oxide (MAG-OX) 250 MG tablet Take 1 tablet (250 mg total) by mouth daily. Active aspirin EC (ECOTRIN) 81 MG tablet Take 1 tablet (81 mg total) by mouth daily. Active oyster shell calcium 500 mg, elemental, (OSCAL) 500 MG tablet Take 2 tablets (1,000 mg total) by mouth daily. Active Active Problems Problem Noted Date Diagnosed Date Complex tear of medial menis cus of right knee as current injury, subsequent encounter 01/20/2023 Primary osteoarthritis of right knee 01/13/2023 Social History Tobacco Use Types Packs/Day Years Used Date Smoking Tobacco: Never Smokeless Tobacco: Never Alcohol Use Standard Drinks/Week Comments Never 0 (1 standard drink = 0.6 oz pur e alcohol) Comments No Sex and Gender Information Value Date Recorded Sex Assigned at Not on file Legal Sex Female 10:44 PM CDT Gender Identity Not on file Sexual Orientation Not on file Last Filed Vital Signs Vital Sign Reading Time Taken Comments Blood Pressure 177/86 02/06/2023 9:15 AM CDT Pulse 64 02/06/2023 9:15 AM CDT Temperature 35.3 C (95.6 F) 02/06/2023 9:15 AM CDT Respiratory Rate 16 02/06/2023 9:15 AM CDT Oxygen Saturation 98% 02/06/2023 9:15 AM CDT Inhaled Oxygen Concentration - - Weight 73.5 kg (162 lb) 04/07/2023 11:43 AM CDT Height 162.6 cm (5' 4 ) 04/07/2023 11:43 AM CDT Body Mass Index 27.81 04/07/2023 11:43 AM CDT Plan of Treatment Health Maintenance Due Date Last Done Comments DTaP, Tdap and Td Vaccines ( 1 - Tdap) 1961 Pneumococcal Vaccine: 50+ Ye ars (1 of 1 - PCV) 1992 Zoster Vaccines (1 of 2) 1992 Annual Medicare Wellness Visit 2007 RSV Immunization or 60+ Years (1 - 1-dose 75+ series) 2017 COVID-19 Vaccine ( - 2023-2 5 season) 2024 Dexa Scan (General) Completed 11/17/2017 Meningococcal B Vaccine Aged Out No l onger eligible based on patient's age to complete this topic Meningococcal Vaccine Aged Out No galen maya eligible based on patient's age to complete this topic RSV Immunizations Under 20 Months Aged Out No longer eligible based on patient's age to complete this topic Insurance MEDICARE [facility] Care Teams Income Tax Adjuster Relationship Specialty Start Date End Date Barry Arndt MD [address] [place] [address] PCP - General INTERNAL MEDICINE 12/29/22
--- OUTSIDE RECORDS SUMMARY | 2024-10-14 07:53 | XMS_ITS | Encounter Summary ---
Author Organization [facility] Healthcare Address [address] [place] [id number] Care Team Providers Care Metal Reed Tuner Name Role Phone Barry Arndt MD Primary Care Provider [phone] Reason for Visit * Reason Comments OT Treatment * Consultation (Routine) - Authorized Specialty Diagnoses / Procedures Referred By Contac t Referred To Contact Occupational Therapy Diagnoses Heberden's nodes (with arthropathy) Rosy Kc PA [address] [facility] [address] [place] [address] Phone: tel: fax: [facility] Occupational Therapy [address] [place] [address] Phone: tel: fax: Referral ID Status Reason Start Date Expiration Date Visits Requested Visits Authorized [id number] Authorized Evaluate and Treat 05/03/2024 06/02/2025 99 99 Encounter Details Date Type Department Care Team (Late st Contact Info) Description 10/13/2024 11:15 AM CDT Therapy [facility] Occupational Therapy [address] [place] [phone] Ary Espinal OT [address] [place] [phone] Heberden's nodes (with arthropathy) (Primary Dx) Social History Tobacco Use Types Packs/Day Years Used Date Smoking Tobacco: Never Alcohol Use Standard Drinks/Week Comments No 0 (1 standard drink = 0.6 oz pur e alcohol) Comments No Sex and Gender Information Value Date Recorded Sex Assigned at Not on file Legal Sex Female 2:51 AM 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 She is now able to shuffle cards. Objective: Right flexion to DPC: 4.5 / 5.0 / 4.5 / 4.4 Treatment Provided: MHP x's 10 minutes to increase tissue extensibility Joint mobs to right PIP joints x's 10 reps each Therapist completed PROM for straight fist to IF-SF x's 10 reps Gripping exercise using yellow theraputty and x's 3 minutes Yellow theraputty and marble activity x's 9 marbles (with increased time). Assessment: Patient continues to have decreased ROM of right IF-SF. She has no pain at rest but does have discomfort with exercise. She tolerated all therapy activities this date including strengthening progressions. She continues to make slow progress with therapy. She verbalized less tightness following She verbalized understanding of continuation of HEP. She would benefit from continued OT services. ST) 05/05/24 Patient to don/doff orthosis independently by end of session today (05/05/24) - met 2) 05/05/24 Patient to report a comfortable orthosis fit by 1 week (05/12/24) - met 3) 05/17/24 Patient to increase right IF MP flexion to 85 degrees by 3 weeks (06/07/24) - met 4) 05/17/24 Patient to increase right IF PIP flexion to 60 degrees by 3 weeks (06/07/24) - met 5) 05/17/24 Patient to increase right LF MP flexion to 85 degrees by 3 weeks (06/07/24) - met 6) 05/17/24 Patient to increase right LF PIP flexion to 65 degrees by 3 weeks (06/07/24) - met 7) 05/17/24 Patient to increase right RF MP flexion to 75 degrees by 3 weeks (06/07/24) - met 8) 05/17/24 Patient to increase right RF PIP flexion to 55 degrees by 3 weeks (06/07/24) - met 9) 05/17/24 Patient to increase right SF MP flexion to 70 degrees by 3 weeks (06/07/24) - met 10) 05/17/24 Patient to increase right SF PIP flexion to 45 degrees by 3 weeks (06/07/24) - met LT) 05/05/24 Patient to increase Quick DASH score to 10% or better by 12 weeks (07/28/24) - ongoing 2) 05/17/24 Patient to increase right IF PIP flexion to 90 degrees by 6 weeks (06/28/24) - ongoing 3) 05/17/24 Patient to increase right LF PIP flexion to 95 degrees by 6 weeks (06/28/24) - ongoing 4) 05/17/24 Patient to increase right RF MP flexion to 85 degrees by 6 weeks (06/28/24) - met 5) 05/17/24 Patient to increase right RF PIP flexion to 85 degrees by 6 weeks (06/28/24) - ongoing 6) 05/17/24 Patient to increase right SF MP flexion to 85 degrees by 6 weeks (06/28/24) - met 7) 05/17/24 Patient to increase right SF PIP flexion to 80 degrees by 6 weeks (06/28/24) - ongoing Plan: Patient to return to therapy to continue plan of care. Start Time: 11:20 AM End Time: 12:05 PM BECKY Whiteside/L documented in this encounter Plan of Treatment Not on file documented as of this encounter Visit Diagnoses Diagnosis Heberden's nodes (with arthropathy)- Primary documented in this encounter Care Teams Metal Reed Tuner Relationship Specialty Start Date End Date Barry Arndt MD PCP - General 10/19/12 documented as of this encounter
--- OUTSIDE RECORDS SUMMARY | 2024-10-14 07:53 | XMS_ITS | Referral Summary ---
Author Organization [facility] Address [address] [place] [address] Care Team Providers Care Property Accountant Name Role Phone Barry Arndt MD Primary Care Provider [phone] Encounters Date Type Department Care Team Description 10/13/2024 11:15 AM CDT Therapy [facility] Occupational Therapy [address] [place] [address] [phone] Ary Espinal, OT Heberden's nodes (with arthropathy) (Primary Dx) 10/04/2024 10:30 AM CDT Therapy [facility] Occupational Therapy [address] [place] [address] [phone] Ary Espinal, OT Heberden's nodes (with arthropathy) (Primary Dx) 09/30/2024 11:15 AM CDT Therapy [facility] Occupational Therapy [address] [place] [address] [phone] Ary Espinal, OT Heberden's nodes (with arthropathy) (Primary Dx) 09/26/2024 11:15 AM CDT Therapy [facility] Occupational Therapy [address] [place] [address] [phone] Mitra Linares, OT Heberden's nodes (with arthropathy) (Primary Dx) 09/23/2024 10:30 AM CDT Therapy [facility] Occupational Therapy [address] [place] [address] [phone] Ary Espinal, OT Heberden's nodes (with arthropathy) (Primary Dx) 09/19/2024 9:00 AM CDT Therapy [facility] Occupational Therapy [address] [place] [address] [phone] Ary Espinal, OT Heberden's nodes (with arthropathy) (Primary Dx) 09/16/2024 1:00 PM CDT Therapy [facility] Occupational Therapy [address] [place] [address] [phone] Ary Espinal, OT Heberden's nodes (with arthropathy) (Primary Dx) 09/09/2024 Plan of Care Documentation [facility] Occupational Therapy [address] [place] [address] [phone] 09/09/2024 1:00 PM CDT Therapy [facility] Occupational Therapy [address] [place] [address] 29705 Ary Espinal, OT Heberden's nodes (with arthropathy) (Primary Dx) 09/05/2024 9:00 AM CDT Therapy [facility] Occupational Therapy [address] [place] [address] 09434 Ary Espinal, OT Heberden's nodes (with arthropathy) (Primary Dx) 09/02/2024 10:15 AM CDT Therapy [facility] Occupational Therapy [address] [place] [address] 84204 Ary Espinal, OT Heberden's nodes (with arthropathy) (Primary Dx) 08/30/2024 10:00 AM CDT Therapy [facility] Occupational Therapy [address] [place] [address] [phone] Ary Espinal, OT Heberden's nodes (with arthropathy) (Primary Dx) 08/18/2024 11:15 AM DOLL WIG HACKLER Therapy [facility] Occupational Therapy [address] [place] [address] [phone] Ary Espinal, OT Heberden's nodes (with arthropathy) (Primary Dx) 08/16/2024 11:15 AM DOLL WIG HACKLER Therapy [facility] Occupational Therapy [address] [place] [address] 09120 Ary Espinal, OT Heberden's nodes (with arthropathy) (Primary Dx) 08/11/2024 11:15 AM DOLL WIG HACKLER Therapy [facility] Occupational Therapy [address] [place] [address] 15300 Ary Espinal, OT Heberden's nodes (with arthropathy) (Primary Dx) 08/11/2024 Plan of Care Documentation [facility] Occupational Therapy [address] [place] [address] [phone] 08/02/2024 10:00 AM DOLL WIG HACKLER Therapy [facility]ational Therapy [address] [place] [address] 37831 Ary Espinal, OT Heberden's nodes (with arthropathy) (Primary Dx) 07/28/2024 11:15 AM DOLL WIG HACKLER Therapy [facility] Occupational Therapy [address] [place] [address] 43251 Ary Espinal, OT Heberden's nodes (with arthropathy) (Primary Dx) 07/21/2024 11:15 AM DOLL WIG HACKLER Therapy [facility] Occupational Therapy [address] [place] [address] [phone] Ary Espinal, OT Heberden's nodes (with arthropathy) (Primary Dx) 07/19/2024 11:15 AM DOLL WIG HACKLER Therapy [facility] Occupational Therapy [address] [place] [address] 41065 Ary Espinal, OT Heberden's nodes (with arthropathy) (Primary Dx) from Last 3 Months Allergies No known active allergies Medications ascorbic acid (VITAMIN C) 1,000 mg tablet Take 1 tablet (1,000 mg total) by mouth daily Active aspirin 81 mg enteric coated tablet Take 1 tablet (81 mg total) by mouth daily Active folic acid/multivit-m in/lutein (CENTRUM SILVER ORAL) Take by mouth Active magnesium gluconate 200 mg tablet 1.25 tablets (250 mg total) Active pbrgcsaz-luyk-n ollag-hyalur ac 146-053-46-2 mg capsule Take by mouth Active simvastatin (ZOCOR) 20 mg tablet Take 0.5 tablets (10 mg total) by mouth nightly 90 tablet 3 2 Active levothyroxine (SYNTHROID) 200 mcg tablet Take 0.5 tablets (100 mcg total) by mouth worship leader before breakfast 15 tablet 3 Active losartan (COZAAR) 50 mg tablet Take 0.5 tablets (25 mg total) by mouth daily 15 tablet 3 Active Active Problems Problem Noted Date Diagnosed Date Pulmonary HTN 10/03/2022 Essential hypertension 12/10/2021 Mixed hyperlipidemia 12/10/2021 Coronary artery calcification 12/10/2021 Social History Tobacco Use Types Packs/Day Years Used Date Smoking Tobacco: Never Tobacco Cessation:Counseling Given: Not Answered Alcohol Use Standard Drinks/Week Comments No 0 (1 standard drink = 0.6 oz pur e alcohol) Comments No Sex and Gender Information Value Date Recorded Sex Assigned at Not on file Legal Sex Female 2:51 AM DOLL WIG HACKLER Gender Identity Not on file Sexual Orientation [...] 04/10/2023 10:45 AM CDT Plan of Treatment Not on file Procedures Procedure Name Priority Date/Time Associated Diagnosis [...] by: Jamey Platt M.D. Barry Arndt MD IMG DXA PROCEDURES Final Result from Last 3 Months or Most Recently Relevant to Health Maintenance Insurance MEDICARE [facility] MEDICARE [facility] MEDICARE [facility] [facility] Care Teams Property Accountant Relationship Specialty Start Date End Date Barry Arndt MD PCP - General 10/19/12
[2024-10-14 08:01] LABS: Hematocrit 41.3 % (35.0-42.0); Hemoglobin 13.1 g/dL (11.7-13.8); Mean Corpuscular HGB Conc 31.7 g/dL (32-36); Mean Corpuscular Volume 97.9 fL (78.0-102.0); Platelet Count Result 246 K/mm3 (150-420); Red Blood Count 4.22 M/mm3 (4.20-5.40); Red Cell Distribution Width 12.3 % (11.6-14.4); White Blood Count 5.4 K/mm3 (4.8-10.8)
[2024-10-14 08:04] LABS: Add Urine Microscopic? NO; Appearance Urine Clear (Clear); Bilirubin Urine Negative (Negative); Blood Urine Negative (Negative); Color Urine Light Yellow (Yellow); Glucose Urine UA Negative (Negative); Ketones Urine Negative (Negative); Leukocyte Esterase Ur Negative LEU/UL (Negative); Nitrate Urine Negative (Negative); Protein Urine Negative (Negative); Specific Grav Ur 1.015 (1.010-1.020); Urobilinogen Urine 0.2 mg/dL (0.2-1.0)
[2024-10-14 09:33] LABS: Alanine Aminotransferase 33 U/L (14-59); Albumin Level 3.4 g/dL (3.4-5.0); Alkaline Phosphatase 116 U/L (46-116); Anion Gap 6 mmol/L (4-12); Aspartate Amino Transferase 21 U/L (15-37); Bilirubin,Total 0.5 mg/dL (0.00-1.00); Blood Urea Nitrogen 13 mg/dL (7-18); Calcium 9.1 mg/dL (8.5-10.1); Carbon Dioxide 31 mmol/L (21-32); Chloride 106 mmol/L (98-108); Cholesterol 176 mg/dL (0-200); Estimated Glomerular Filt Rate > 60; Glucose 92 mg/dL (70-99); HDL Direct 62 mg/dL (40-60); LDL Cholesterol Calculated 100 mg/dL (<130); Osmolality Calculated 296 mOsm/kg (285-295); Potassium 4.4 mmol/L (3.5-5.1); Sodium 143 mmol/L (136-145); Thyroid Stimulating Hormone 3.91 uIU/mL (0.36-3.74); Total Protein 6.6 g/dL (6.4-8.2); Triglycerides 71 mg/dL (0-150)
== END 2024-10-14 07:51 | disposition home or self-care (01) ==
LOC: CHSLAB 07:51
PROVIDERS: PCP Internal Medicine; Visit Provider Internal Medicine
DX: I10 Essential (primary) hypertension (principal); E03.9 Hypothyroidism, unspecified; E78.5 Hyperlipidemia, unspecified
CPT/HCPCS: 36415; 80053; 80061; 81003; 84443; 85027

== ENCOUNTER 2024-12-27 10:56 | Outpatient (CLI) | payer MEDICARE, OTHER, SELFPAY ==
--- OUTSIDE RECORDS SUMMARY | 2024-12-27 11:03 | XMS_ITS | Referral Summary ---
Author Organization [facility] Address [address] [place] [address] Care Team Providers Care Winderman Name Role Phone Barry Arndt MD Primary Care Provider Encounters Date Type Department Care Team Description 10/20/2024 11:15 AM CDT Therapy [facility] Occupational Therapy [address] [place] [address] [phone] Ary Espinal, OT Heberden's nodes (with arthropathy) (Primary Dx) 10/17/2024 11:15 AM CDT Therapy [facility] Occupational Therapy [address] [place] [address] [phone] Ary Espinal, OT Heberden's nodes (with arthropathy) (Primary Dx) 10/13/2024 11:15 AM CDT Therapy [facility] Occupational Therapy [address] [place] [address] [phone] Ary Espinal, OT Heberden's nodes (with arthropathy) (Primary Dx) 10/04/2024 10:30 AM CDT Therapy [facility] Occupational Therapy [address] [place] [address] 71630 Ary Espinal, OT Heberden's nodes (with arthropathy) (Primary Dx) 09/30/2024 11:15 AM CDT Therapy [facility] Occupational Therapy [address] [place] [address] 57374 Ary Espinal, OT Heberden's nodes (with arthropathy) [...] tablet 1.25 tablets (250 mg total) Active ybmuenva-janw-i ollag-hyalur ac 917-138-05-2 mg capsule Take by mouth Active simvastatin (ZOCOR) 20 mg tablet Take 0.5 tablets (10 mg total) by mouth nightly 90 tablet 3 2 Active levothyroxine (SYNTHROID) 200 mcg tablet Take 0.5 tablets (100 mcg total) by mouth on air personality before breakfast 15 tablet 3 Active losartan [...] on file 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 Barry Arndt MD IM DXA PROCEDURES Final Result from Last 3 Months or Most Recently Relevant to Health Maintenance Insurance MEDICARE [facility] MEDICARE [employer] Care Teams Winderman Relationship Specialty Start Date End Date Barry Arndt MD [facility] - General 10/19/12
--- OUTSIDE RECORDS SUMMARY | 2024-12-27 11:03 | XMS_ITS | Clinical Summary ---
Author Organization [facility] Address Formerly [facility] [place] [address] Care Team Providers Care Operational Test Mechanic Name Role Phone Barry Arndt MD Primary Care Provider [phone] Allergies No known active allergies Medications simvastatin [...] 11:43 AM CDT Height 162.6 cm (5' 4) 04/07/2023 11:43 AM CDT Body Mass Index [...] age to complete this topic Insurance MEDICARE [facility] Care Teams Operational Test Mechanic Relationship Specialty Start Date End Date Barry Arndt MD [address] [place] [address] PCP - General INTERNAL MEDICINE 12/29/22
--- OUTSIDE RECORDS SUMMARY | 2024-12-27 11:03 | XMS_ITS | Clinical Summary ---
Author Organization [facility] Address [address] [place] [address] Care Team Providers Care Block Setter Gypsum Name Role Phone Barry Arndt MD Primary Care Provider [phone] Allergies No known active allergies Medications ascorbic acid (VITAMIN C) 1,000 mg tablet Take 1 tablet (1,000 mg total) by mouth daily Active aspirin 81 mg enteric coated tablet Take 1 tablet (81 mg total) by mouth daily Active folic acid/multivit-m in/lutein (CENTRUM SILVER ORAL) Take by mouth Active magnesium gluconate 200 mg tablet 1.25 tablets (250 mg total) Active hyefmvet-gcgg-m ollag-hyalur ac 889-918-89-2 mg capsule Take by mouth Active simvastatin (ZOCOR) 20 mg tablet Take 0.5 tablets (10 mg total) by mouth nightly 90 tablet 3 2 Active levothyroxine (SYNTHROID) 200 mcg tablet Take 0.5 tablets (100 mcg total) by mouth early years teacher before breakfast 15 tablet 3 Active losartan (COZAAR) 50 mg tablet Take 0.5 tablets (25 mg total) by mouth daily 15 tablet 3 Active Active Problems Problem Noted Date Diagnosed Date Pulmonary HTN 10/03/2022 Essential hypertension 12/10/2021 Mixed hyperlipidemia 12/10/2021 Coronary artery calcification 12/10/2021 Encounters Date Type Department Care Team Description 10/20/2024 11:15 AM CDT Therapy [facility] Occupational Therapy [address] [place], [place] [phone] Ary Espinal, OT Heberden's nodes (with arthropathy) (Primary Dx) 10/17/2024 11:15 AM CDT Therapy [facility] Occupational Therapy [address] [place] [address] [phone] Ary Espinal, OT Heberden's nodes (with arthropathy) (Primary Dx) 10/13/2024 11:15 AM CDT Therapy [facility] Occup[facility] Therapy [address] [place] [address] [phone] Ary Espinal, OT Heberden's nodes (with arthropathy) (Primary Dx) 10/04/2024 10:30 AM CDT Therapy [facility] Therapy [address] [place] [address] [phone] Ary Espinal, OT Heberden's nodes (with arthropathy) (Primary Dx) 09/30/2024 11:15 AM CDT Therapy [facility] Therapy [address] [place] [address] [phone] Ary Espinal, OT Heberden's nodes (with arthropathy) [...] dyslipidemia Hx Other Medical history of toba 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 MEDICARE [facility] MEDICARE [facility] [employer] Care Teams Block Setter Gypsum Relationship Specialty Start Date End Date Barry Arndt MD PCP - General 10/19/12
[2024-12-27 11:30] LABS: Alanine Aminotransferase 21 U/L (6-35); Albumin Level 3.8 g/dL (3.5-5.1); Alkaline Phosphatase 87 U/L (38-126); Anion Gap 1 mmol/L (4-12); Aspartate Amino Transferase 32 U/L (14-36); Bilirubin,Total 0.4 mg/dL (0.2-1.3); Blood Urea Nitrogen 14 mg/dL (7-17); Calcium 9.0 mg/dL (8.4-10.2); Carbon Dioxide 30 mmol/L (22-30); Chloride 105 mmol/L (98-107); Estimated Glomerular Filt Rate > 60; Glucose 86 mg/dL (65-110); Magnesium 1.9 mg/dL (1.6-2.3); Osmolality Calculated 281 mOsm/kg (285-295); Potassium 4.9 mmol/L (3.4-5.0); Sodium 136 mmol/L (137-145); Total Protein 6.5 g/dL (6.3-8.2)
== END 2024-12-27 10:57 | disposition home or self-care (01) ==
PROVIDERS: PCP Internal Medicine; Visit Provider Internal Medicine
DX: I10 Essential (primary) hypertension (principal)
CPT/HCPCS: 36415; 80053; 83735